=== PATIENT | female | born 1950 | race African-American/Black ===

== ENCOUNTER 2019-10-31 02:55 | Inpatient (IN) | payer OTHER ==
[~2019-10-31] VITALS: Ht 167.6 cm; Wt 104.9 kg
[2019-10-31] MEDS ORDERED: MORPHINE SULFATE 4 MG/ML CPJ (NOT FOR IM USE) IV STA ×3 (03:38→08:28)
[2019-10-31] MEDS ORDERED: ONDANSETRON HCL 4MG/2ML INJ IV STA ×2 (03:38→08:28)
[2019-10-31] MEDS ORDERED: NITROGLYCERIN OINT 1GM/INCH UDPKT TD ONE (03:45)
[2019-10-31 04:21] LABS: BASOPHILS % 1.2 % (0.0-2.0); EOSINOPHILS % 6.7 % (0.0-5.0); HEMATOCRIT. 27.5 % (36.0-48.0); HEMOGLOBIN. 8.9 g/dL (12.0-16.0); LYMPHOCYTES % 27.6 % (20.0-50.0); MEAN CORPUSCULAR HEMOGLOBIN 26.9 pg (28.0-32.0); MEAN CORPUSCULAR VOLUME 82.8 fL (81.0-99.0); MEAN PLATELET VOLUME 7.7 fl (7.4-10.4); MONOCYTES % 6.9 % (2.0-8.0); NEUTROPHILS % 57.6 % (40.0-76.0); PLATELET 349 x1000/uL (130-400); RED BLOOD CELL COUNT 3.32 mill/uL (4.2-5.4); RED CELL DISTRIBUTION WIDTH 23.8 % (11.6-14.6)
[2019-10-31 04:29] LABS: CHLORIDE 102 mEq/L (98-107)
[2019-10-31 05:07] LABS: PLATELET ESTIMATE NORMAL
[2019-10-31] MEDS ORDERED: IOHEXOL-350 100 ML BOTTLE ONE (06:43)
[2019-10-31] MEDS ORDERED: ENOXAPARIN 80MG/0.8ML SYR SUBCUT SCH (10:15)
[2019-10-31] MEDS ORDERED: ASPIRIN 325MG TABLET PO SCH (10:15)
[2019-10-31] MEDS ORDERED: ACETAMINOPHEN 325MG TABLET PO PRN (10:45)
[2019-10-31] MEDS ORDERED: ONDANSETRON HCL 4MG/2ML INJ IV PRN ×2 (10:45)
[2019-10-31] MEDS ORDERED: DEXTROSE 50% WATER 50ML SYRINGE IV PRN (10:45)
[2019-10-31] MEDS: AMLODIPINE 10MG TABLET PO SCH (11:30)
[2019-10-31] MEDS: MORPHINE SULFATE 2 MG/ML CPJ (NOT FOR IM USE) IV PRN ×2 (11:31→18:36)
[2019-10-31] MEDS: BLOOD SUGAR DIAGNOSTIC STRIP TEST SCH ×3 (13:14→21:00)
[2019-10-31] MEDS: INSULIN LISPRO 100 UNITS/ML SUBCUT SCH ×3 (13:40→21:00)
[2019-10-31] MEDS ORDERED: LORAZEPAM 2MG/ML CPJ IV PRN (20:00)
[2019-10-31 21:00] VITALS: BP 140/82
[2019-10-31 22:00] VITALS: BP 118/68
[2019-10-31] MEDS: METOPROLOL TARTRATE 50MG TABLET PO SCH (22:16)
[2019-10-31] MEDS: NITROGLYCERIN OINT 1GM/INCH UDPKT TD SCH (23:44)
[2019-11-01] VITALS (14 sets, daily range): BP systolic 111–155; BP diastolic 49–89
[2019-11-01] MEDS ORDERED: BISO5TAB13 PO (00:56)
[2019-11-01] MEDS ORDERED: HUM100IN SQ (00:56)
[2019-11-01] MEDS ORDERED: FURO20TA4 PO (00:56)
[2019-11-01] MEDS ORDERED: ASPI-1497 PO (00:56)
[2019-11-01] MEDS ORDERED: QUET400T11 PO (00:56)
[2019-11-01] MEDS ORDERED: OMEP40CA12 PO (00:56)
[2019-11-01] MEDS ORDERED: LOSA50TA41 PO (00:56)
[2019-11-01] MEDS ORDERED: FERR-71 MT (00:56)
[2019-11-01] MEDS ORDERED: ASCO100T12 MT (00:56)
[2019-11-01] MEDS ORDERED: ATOR-2 PO (00:56)
[2019-11-01] MEDS: BLOOD SUGAR DIAGNOSTIC STRIP TEST SCH ×4 (06:17→20:52)
[2019-11-01] MEDS: MORPHINE SULFATE 2 MG/ML CPJ (NOT FOR IM USE) IV PRN ×3 (06:18→21:52)
[2019-11-01] MEDS: NITROGLYCERIN OINT 1GM/INCH UDPKT TD SCH ×3 (06:18→21:51)
[2019-11-01 07:12] LABS: CLARITY URINE CLEAR (CLEAR); COLOR URINE YELLOW (YELLOW); KETONES URINE NEGATIVE (NEGATIVE); LEUKOCYTE ESTERASE URINE NEGATIVE (NEGATIVE); NITRITE URINE NEGATIVE (NEGATIVE); OCCULT BLOOD URINE 1+ (NEGATIVE); PROTEIN URINE 4+ (NEGATIVE); SPECIFIC GRAVITY URINE 1.039 (1.005-1.030); UROBILINOGEN URINE 0.2 E.U./dL (0.2-1.0)
[2019-11-01] MEDS: INSULIN LISPRO 100 UNITS/ML SUBCUT SCH ×4 (07:20→20:53)
[2019-11-01] MEDS ORDERED: FUROSEMIDE 40MG/4ML VIAL IVP NR (08:30)
[2019-11-01] MEDS ORDERED: ENOXAPARIN 40MG/0.4ML SYR SUBCUT SCH (09:00)
[2019-11-01] MEDS ORDERED: ENOXAPARIN 120MG/0.8ML SYR SUBCUT SCH (09:00)
[2019-11-01] MEDS: METOPROLOL TARTRATE 50MG TABLET PO SCH ×2 (09:45→20:52)
[2019-11-01] MEDS: ASPIRIN 81MG TABLET PO SCH (09:45)
[2019-11-01] MEDS: HYDROCODONE/ACETAMINOPHEN 10/325MG TABLET PO PRN (09:46)
[2019-11-01] MEDS: AMLODIPINE 10MG TABLET PO SCH (09:47)
[2019-11-01 10:07] LABS: PROTHROMBIN TIME 10.4 sec (9.6-11.0)
[2019-11-01] MEDS ORDERED: LIDOCAINE HCL 1% 20ML VIAL (Pyxis) INJ ONE (11:34)
[2019-11-01] MEDS ORDERED: FENTANYL CITRATE/PF 50MCG/ML 2ML VIAL ONE (11:34)
[2019-11-01] MEDS ORDERED: MIDAZOLAM HCL 2 MG/2 ML VIAL ONE (11:34)
[2019-11-01] MEDS ORDERED: IODIXANOL 320MG/ML 100 ML BOTTLE IV ONE (11:35)
[2019-11-01] MEDS ORDERED: ACETAMINOPHEN 325MG TABLET PO PRN (12:30)
[2019-11-01] MEDS ORDERED: ATROPINE SULFATE 1MG/10ML SYR IV PRN (12:30)
[2019-11-01] MEDS: CLOPIDOGREL 75MG TABLET PO SCH (15:29)
[2019-11-01] MEDS ORDERED: ATORVASTATIN CALCIUM 40MG TABLET PO SCH (21:00)
[2019-11-02] VITALS (17 sets, daily range): BP systolic 105–155; BP diastolic 57–92
[2019-11-02] MEDS: HYDROCODONE/ACETAMINOPHEN 10/325MG TABLET PO PRN ×2 (00:51→10:41)
[2019-11-02 05:29] LABS: EOSINOPHILS % 7.8 % (0.0-5.0); HEMATOCRIT. 24.9 % (36.0-48.0); HEMOGLOBIN. 7.9 g/dL (12.0-16.0); LYMPHOCYTES % 25.9 % (20.0-50.0); MEAN CORPUSCULAR HEMOGLOBIN 26.8 pg (28.0-32.0); MEAN CORPUSCULAR VOLUME 83.9 fL (81.0-99.0); MEAN PLATELET VOLUME 7.8 fl (7.4-10.4); MONOCYTES % 8.6 % (2.0-8.0); NEUTROPHILS % 56.7 % (40.0-76.0); PLATELET 305 x1000/uL (130-400); RED BLOOD CELL COUNT 2.96 mill/uL (4.2-5.4); RED CELL DISTRIBUTION WIDTH 23.5 % (11.6-14.6)
[2019-11-02] MEDS: NITROGLYCERIN OINT 1GM/INCH UDPKT TD SCH (06:07)
[2019-11-02] MEDS: BLOOD SUGAR DIAGNOSTIC STRIP TEST SCH ×3 (07:00→16:50)
[2019-11-02] MEDS: INSULIN LISPRO 100 UNITS/ML SUBCUT SCH ×3 (08:21→17:36)
[2019-11-02] MEDS: METOPROLOL TARTRATE 50MG TABLET PO SCH (08:22)
[2019-11-02] MEDS: AMLODIPINE 10MG TABLET PO SCH (08:22)
[2019-11-02] MEDS: CLOPIDOGREL 75MG TABLET PO SCH (08:22)
[2019-11-02] MEDS: ASPIRIN 81MG TABLET PO SCH (08:22)
[2019-11-02] MEDS: MORPHINE SULFATE 2 MG/ML CPJ (NOT FOR IM USE) IV PRN (12:53)
[2019-11-02] MEDS ORDERED: NITROGLYCERIN OINT 1GM/INCH UDPKT TD SCH (14:00)
== END 2019-11-02 20:58 | disposition short-term general hospital (02) | DRG 280 ==
LOC: ER 02:55 → 3WST 11:10 → ENRESERV 15:46 → CANRESERV 15:46 → EDBEDREQSVC 16:11 → ENRESERV 16:59 → 3WST 20:16
PROVIDERS: ADMIT Internal Medicine; ATTEND Internal Medicine
PROC: 4A023N7 Measurement of Cardiac Sampling and Pressure, Left Heart, Percutaneous Approach (ICD-10-PCS; principal; 2019-11-02)
PROC: B2110ZZ Fluoroscopy of Multiple Coronary Arteries using High Osmolar Contrast (ICD-10-PCS; 2019-11-02)
PROC: B2181ZZ Fluoroscopy of Left Internal Mammary Bypass Graft using Low Osmolar Contrast (ICD-10-PCS; 2019-11-02)
PROC: B21F1ZZ Fluoroscopy of Other Bypass Graft using Low Osmolar Contrast (ICD-10-PCS; 2019-11-02)
DX: I21.4 Non-ST elevation (NSTEMI) myocardial infarction (principal); E43 Unspecified severe protein-calorie malnutrition; I25.10 Atherosclerotic heart disease of native coronary artery without angina pectoris; E11.9 Type 2 diabetes mellitus without complications; I50.9 Heart failure, unspecified; I11.0 Hypertensive heart disease with heart failure; E78.1 Pure hyperglyceridemia; D64.9 Anemia, unspecified; E78.5 Hyperlipidemia, unspecified; I27.20 Pulmonary hypertension, unspecified; I87.8 Other specified disorders of veins; Z95.1 Presence of aortocoronary bypass graft; Z79.4 Long term (current) use of insulin; I25.2 Old myocardial infarction; Z95.5 Presence of coronary angioplasty implant and graft; Z68.37 Body mass index [BMI] 37.0-37.9, adult; Z79.899 Other long term (current) drug therapy
CPT/HCPCS: 36415; 71045; 71275; 80048; 80053; 80061; 81003; 82962; 83880; 84443; 84484; 85025; 85379; 93005; 93306; 93459; 99285; C1760; C1769; C1887; C1893; J1644; J1650; J1815; J1940; J2060; J2250; J2270; J2405; J3010; J3490; Q9967

== ENCOUNTER 2022-04-10 16:02 | Emergency (ER) | payer OTHER ==
[~2022-04-10] VITALS: Ht 167.6 cm; Wt 91.0 kg
[~2022-04-10 16:02] MED LIST: ASCO100T12 MT; ASPI-1497 PO; ATOR-2 PO; BISO5TAB13 PO; FERR-71 MT; FURO20TA4 PO; HUM100IN SQ; LOSA50TA41 PO; OMEP40CA20 PO; QUET400T12 PO
[2022-04-10] MEDS ORDERED: MORPHINE SULFATE 4 MG/ML CPJ (NOT FOR IM USE) IV NR (17:15)
[2022-04-10] MEDS ORDERED: HYDROCODONE/ACETAMINOPHEN 5/325MG TABLET PO ONE (17:45)
[2022-04-10] MEDS ORDERED: HYDROCODONE/ACETAMINOPHEN 5/325MG TABLET PO NR (20:52)
[2022-04-10 21:04] LABS: BASOPHILS % 1.1 % (0.0-2.0); EOSINOPHILS % 3.8 % (0.0-5.0); HEMOGLOBIN. 7.5 g/dL (12.0-16.0); LYMPHOCYTES % 29.9 % (20.0-50.0); MEAN CORPUSCULAR HEMOGLOBIN 30.5 pg (28.0-32.0); MEAN CORPUSCULAR VOLUME 93.6 fL (81.0-99.0); MONOCYTES % 9.3 % (2.0-8.0); NEUTROPHILS % 55.9 % (40.0-76.0); PLATELET 281 x1000/uL (130-400); RED BLOOD CELL COUNT 2.46 mill/uL (4.2-5.4); RED CELL DISTRIBUTION WIDTH 15.4 % (11.6-14.6)
[2022-04-10 21:12] LABS: CHLORIDE 105 mEq/L (98-107)
[2022-04-10 21:20] LABS: ETHANOL BLOOD < 10 mg/dL
[2022-04-10] MEDS ORDERED: FUROSEMIDE 40MG/4ML VIAL IVP NR (21:30)
[2022-04-10 22:30] VITALS: BP 145/83
== END 2022-04-11 02:26 | disposition short-term general hospital (02) ==
LOC: ER 16:02
DX: I11.0 Hypertensive heart disease with heart failure (principal); I50.9 Heart failure, unspecified; J96.02 Acute respiratory failure with hypercapnia; R07.89 Other chest pain; J44.9 Chronic obstructive pulmonary disease, unspecified; D64.9 Anemia, unspecified; I25.2 Old myocardial infarction; E11.9 Type 2 diabetes mellitus without complications; Z20.822 Contact with and (suspected) exposure to COVID-19
CPT/HCPCS: 36415; 71045; 80053; 80320; 83690; 83880; 84484; 85025; 85610; 87426; 93005; 99285; C9803; Z7610; J1940; G0480

== ENCOUNTER 2022-11-23 13:50 | Emergency (ER) | payer OTHER ==
[~2022-11-23] VITALS: Ht 172.7 cm; Wt 113.0 kg
[2022-11-23 14:00] VITALS: O2SAT 99
[2022-11-23 15:06] LABS: BASOPHILS % 1.1 % (0.0-2.0); EOSINOPHILS % 5.1 % (0.0-5.0); HEMATOCRIT. 24.3 % (36.0-48.0); LYMPHOCYTES % 24.2 % (20.0-50.0); MEAN CORPUSCULAR HEMOGLOBIN 30.2 pg (28.0-32.0); MEAN CORPUSCULAR HGB CONC 32.8 g/dL (31.0-37.0); MEAN CORPUSCULAR VOLUME 92.1 fL (81.0-99.0); MEAN PLATELET VOLUME 8.4 fl (7.4-10.4); MONOCYTES % 9.1 % (2.0-8.0); NEUTROPHILS % 60.5 % (40.0-76.0); PLATELET 343 x1000/uL (130-400); RED BLOOD CELL COUNT 2.64 mill/uL (4.2-5.4); RED CELL DISTRIBUTION WIDTH 14.8 % (11.6-14.6); WHITE BLOOD COUNT 6.1 x1000/uL (4.5-11.0)
[2022-11-23 15:08] LABS: CHLORIDE 102 mEq/L (98-107); INDEX HEMOLYSI 1 (1-3); INDEX ICTERIC 1 (1-4); INDEX LIPEMIC 1 (1-3); POTASSIUM 4.5 mEq/L (3.5-5.1); SODIUM 134 mEq/L (136-145)
[2022-11-23 15:19] LABS: ALANINE AMINOTRANSFERASE 23 IU/L (13-61); ALBUMIN 3.4 g/dL (3.4-5.0); ASPARTATE AMINOTRANSFERASE 17 IU/L (15-37); BILIRUBIN TOTAL 0.5 mg/dL (0.1-1.0); CARBON DIOXIDE 27 mEq/L (21-32); CREATININE 2.2 mg/dL (0.6-1.3); GLUCOSE 182 mg/dL (70-105); NT PRO B-TYPE NATRIURETIC PEP 2901 pg/mL (5-125); PROTEIN TOTAL 7.4 g/dL (6.0-8.3); TROPONIN I HIGH SENSITIVITY 17 ng/L (<54); UREA NITROGEN BLOOD 24 mg/dL (7-21)
[2022-11-23] MEDS ORDERED: ASPIRIN 325MG EC TABLET PO NR (15:45)
[2022-11-23 18:23] VITALS: BP 159/79; PULSE 77; RESP 16; TEMP 98.1
== END 2022-11-23 18:37 | disposition short-term general hospital (02) ==
LOC: ER 13:59
DX: I24.9 Acute ischemic heart disease, unspecified (principal); I25.10 Atherosclerotic heart disease of native coronary artery without angina pectoris; E11.9 Type 2 diabetes mellitus without complications; I10 Essential (primary) hypertension; Z79.899 Other long term (current) drug therapy; Z20.822 Contact with and (suspected) exposure to COVID-19
CPT/HCPCS: 80053; 83880; 85025; 84484; 36415; 71045; 93005; 99285; 87426; C9803; Z7610 ×3

== ENCOUNTER 2023-12-14 12:14 | Emergency (ER) | payer OTHER ==
[~2023-12-14] VITALS: Ht 180.3 cm; Wt 130.0 kg
[2023-12-14 12:17] VITALS: TEMP 98.7; O2SAT 99
[2023-12-14] MEDS: ASPIRIN 81MG TABLET PO ONE (13:05)
[2023-12-14 13:23] LABS: BASOPHILS % 0.9 % (0.0-2.0); EOSINOPHILS % 3.5 % (0.0-5.0); HEMATOCRIT. 33.2 % (36.0-48.0); HEMOGLOBIN. 10.3 g/dL (12.0-16.0); LYMPHOCYTES % 14.4 % (20.0-50.0); MEAN CORPUSCULAR HEMOGLOBIN 29.4 pg (28.0-32.0); MEAN CORPUSCULAR VOLUME 94.7 fL (81.0-99.0); MEAN PLATELET VOLUME 9.2 fl (7.4-10.4); MONOCYTES % 6.1 % (2.0-8.0); NEUTROPHILS % 75.1 % (40.0-76.0); PLATELET 207 x1000/uL (130-400); RED BLOOD CELL COUNT 3.51 mill/uL (4.2-5.4); WHITE BLOOD COUNT 6.1 x1000/uL (4.5-11.0)
[2023-12-14 13:27] LABS: CHLORIDE 106 mEq/L (98-107); POTASSIUM 5.1 mEq/L (3.5-5.1); SODIUM 137 mEq/L (136-145)
[2023-12-14 13:28] LABS: CALCIUM 8.8 mg/dL (8.7-10.4); CARBON DIOXIDE 25 mEq/L (21-32)
[2023-12-14 13:33] LABS: CREATININE 2.5 mg/dL (0.6-1.0); GLUCOSE 299 mg/dL (70-105); UREA NITROGEN BLOOD 27 mg/dL (9-23)
[2023-12-14 13:34] LABS: TROPONIN I HIGH SENSITIVITY 12 ng/L (3.0-34)
[2023-12-14] MEDS ORDERED: FUROSEMIDE 40MG/4ML VIAL IVP NR (15:00)
[2023-12-14 16:13] LABS: IRON 63 ug/dL (50-170)
[2023-12-14 16:14] LABS: TRIGLYCERIDE 109 mg/dL (0-150)
[2023-12-14 16:15] LABS: LDL CHOLESTEROL 50 mg/dL (5-100)
[2023-12-14 16:16] LABS: CHOLESTEROL 104 mg/dL (<200); HDL CHOLESTEROL 34 mg/dL (>65); TOTAL IRON BINDING CAPACITY 242 ug/dl (250-425)
[2023-12-14 16:18] LABS: T4 FREE 1.27 ng/dL (0.89-1.76)
[2023-12-14 16:19] LABS: THYROID STIMULATING HORMONE 2.48 uIU/mL (0.55-4.78)
[2023-12-14] MEDS ORDERED: GUAIFENESIN 200MG/10ML SUGAR FREE UDC PO PRN (16:45)
[2023-12-14] MEDS ORDERED: CLONIDINE 0.1MG TABLET PO PRN (16:45)
[2023-12-14] MEDS ORDERED: MAGNESIUM/ALUMINUM HYDROXIDE/SIMETHICONE 30ML UDC PO PRN (16:45)
[2023-12-14] MEDS ORDERED: AMLODIPINE 5MG TABLET PO SCH (16:45)
[2023-12-14] MEDS ORDERED: NITROGLYCERIN 0.4MG TABLET SL SL PRN (16:45)
[2023-12-14] MEDS ORDERED: DOCUSATE SODIUM 100MG CAPSULE PO PRN (16:45)
[2023-12-14] MEDS ORDERED: ONDANSETRON HCL 4MG/2ML INJ IV PRN (16:45)
[2023-12-14] MEDS ORDERED: ACETAMINOPHEN 325MG TABLET PO PRN ×2 (16:45)
[2023-12-14] MEDS ORDERED: IPRATROPIUM/ALBUTEROL 0.5-3(2.5)MG/3ML NEB NEB PRN (16:45)
[2023-12-14 17:30] VITALS: BP 179/85; PULSE 80; RESP 22; O2SAT 95
[2023-12-14] MEDS ORDERED: ZOLPIDEM TARTRATE 5MG TABLET PO PRN (20:00)
[2023-12-14] MEDS ORDERED: FUROSEMIDE 40MG/4ML VIAL IVP SCH (21:00)
[2023-12-14] MEDS ORDERED: FAMOTIDINE 20MG TABLET PO SCH (21:00)
[2023-12-15] MEDS ORDERED: AMLODIPINE 10MG TABLET PO SCH (09:00)
[2023-12-15] MEDS ORDERED: ASPIRIN 325MG EC TABLET PO SCH (09:00)
[2023-12-15] MEDS ORDERED: ENOXAPARIN 30MG/0.3ML SYR SUBCUT SCH (09:00)
[2023-12-15 17:10] LABS: FOLIC ACID (FOLATE) SERUM > 20.00 ng/mL (>5.38); VITAMIN B12 SERUM 1037 pg/mL (211-911)
== END 2023-12-14 17:51 | disposition short-term general hospital (02) ==
LOC: ER 12:14 → CANBEDREQ 17:07 → ER 17:51
DX: R07.89 Other chest pain (principal); I11.0 Hypertensive heart disease with heart failure; I50.9 Heart failure, unspecified; E11.9 Type 2 diabetes mellitus without complications; I25.10 Atherosclerotic heart disease of native coronary artery without angina pectoris; Z88.8 Allergy status to other drugs, medicaments and biological substances; Z79.899 Other long term (current) drug therapy; Z79.82 Long term (current) use of aspirin; Z91.041 Radiographic dye allergy status
CPT/HCPCS: 80061; 80048; 82607; 82746; 83036; 83880; 84439; 83540; 83550; 84443; 85025; 84484; 36415; 84145; 71045; 93005; 99285; Z7610 ×4; 80305

== ENCOUNTER 2023-12-18 23:17 | Emergency (ER) | payer OTHER ==
[~2023-12-18] VITALS: Ht 175.3 cm; Wt 150.0 kg
[2023-12-18 23:28] VITALS: O2SAT 100
[2023-12-19 00:35] LABS: BASOPHILS % 0.9 % (0.0-2.0); EOSINOPHILS % 4.1 % (0.0-5.0); HEMATOCRIT. 29.7 % (36.0-48.0); HEMOGLOBIN. 9.6 g/dL (12.0-16.0); LYMPHOCYTES % 22.2 % (20.0-50.0); MEAN CORPUSCULAR HEMOGLOBIN 30.1 pg (28.0-32.0); MEAN CORPUSCULAR HGB CONC 32.5 g/dL (31.0-37.0); MEAN CORPUSCULAR VOLUME 92.6 fL (81.0-99.0); MEAN PLATELET VOLUME 9.2 fl (7.4-10.4); MONOCYTES % 9.6 % (2.0-8.0); NEUTROPHILS % 63.2 % (40.0-76.0); PLATELET 204 x1000/uL (130-400); RED BLOOD CELL COUNT 3.21 mill/uL (4.2-5.4); RED CELL DISTRIBUTION WIDTH 16.5 % (11.6-14.6); WHITE BLOOD COUNT 4.5 x1000/uL (4.5-11.0)
[2023-12-19] MEDS: FUROSEMIDE 40MG/4ML VIAL IVP ONE (00:35)
[2023-12-19 00:43] LABS: CHLORIDE 104 mEq/L (98-107); POTASSIUM 4.4 mEq/L (3.5-5.1); SODIUM 137 mEq/L (136-145)
[2023-12-19 00:44] LABS: CARBON DIOXIDE 28 mEq/L (21-32)
[2023-12-19 00:45] LABS: CALCIUM 9.3 mg/dL (8.7-10.4)
[2023-12-19 00:49] LABS: CREATININE 2.5 mg/dL (0.6-1.0); GLUCOSE 180 mg/dL (70-105); UREA NITROGEN BLOOD 29 mg/dL (9-23)
[2023-12-19 00:50] LABS: TROPONIN I HIGH SENSITIVITY 18 ng/L (3.0-34)
[2023-12-19] MEDS: FUROSEMIDE 40MG TABLET PO ONE (01:30)
[2023-12-19] MEDS: LABETALOL HCL 100MG TABLET PO ONE (02:45)
[2023-12-19 03:20] VITALS: BP 172/88; PULSE 76; RESP 22; TEMP 37.00296; O2SAT 100
== END 2023-12-19 03:31 | disposition short-term general hospital (02) ==
LOC: ER 23:17
DX: I11.0 Hypertensive heart disease with heart failure (principal); I50.9 Heart failure, unspecified; J96.91 Respiratory failure, unspecified with hypoxia; I25.10 Atherosclerotic heart disease of native coronary artery without angina pectoris; E11.9 Type 2 diabetes mellitus without complications; Z88.8 Allergy status to other drugs, medicaments and biological substances; Z91.041 Radiographic dye allergy status; Z95.1 Presence of aortocoronary bypass graft
CPT/HCPCS: 36415; 71045; 80048; 83880; 84484; 85025; 93005; 99285

== ENCOUNTER 2023-12-21 14:59 | Emergency (ER) | payer OTHER ==
[~2023-12-21] VITALS: Ht 165.1 cm; Wt 150.0 kg
[2023-12-21 15:01] VITALS: O2SAT 97
[2023-12-21 15:44] LABS: BASOPHILS % 0.8 % (0.0-2.0); EOSINOPHILS % 4.2 % (0.0-5.0); HEMATOCRIT. 29.6 % (36.0-48.0); HEMOGLOBIN. 9.4 g/dL (12.0-16.0); LYMPHOCYTES % 20.8 % (20.0-50.0); MEAN CORPUSCULAR HEMOGLOBIN 29.9 pg (28.0-32.0); MEAN CORPUSCULAR HGB CONC 31.7 g/dL (31.0-37.0); MEAN CORPUSCULAR VOLUME 94.1 fL (81.0-99.0); MONOCYTES % 8.1 % (2.0-8.0); NEUTROPHILS % 66.1 % (40.0-76.0); PLATELET 183 x1000/uL (130-400); RED BLOOD CELL COUNT 3.14 mill/uL (4.2-5.4); RED CELL DISTRIBUTION WIDTH 16.8 % (11.6-14.6); WHITE BLOOD COUNT 4.4 x1000/uL (4.5-11.0)
[2023-12-21 15:50] LABS: POTASSIUM 5.3 mEq/L (3.5-5.1)
[2023-12-21 15:51] LABS: CALCIUM 8.9 mg/dL (8.7-10.4)
[2023-12-21 15:55] LABS: CREATININE 2.7 mg/dL (0.6-1.0)
[2023-12-21 15:57] LABS: PROTHROMBIN TIME 10.9 sec (9.6-11.0)
[2023-12-21] MEDS: NITROGLYCERIN 0.4MG TABLET SL SL ONE (16:19)
[2023-12-21] MEDS: FUROSEMIDE 40MG/4ML VIAL IVP ONE (17:08)
[2023-12-21 18:56] VITALS: TEMP 37.00296
[2023-12-21] MEDS: LABETALOL 5MG/ML 4ML INJ IV ONE (19:25)
[2023-12-21 19:47] VITALS: BP 163/75; PULSE 77; RESP 18; O2SAT 99
== END 2023-12-21 19:45 | disposition short-term general hospital (02) ==
LOC: ER 14:59
DX: I50.9 Heart failure, unspecified (principal); I11.0 Hypertensive heart disease with heart failure; I25.2 Old myocardial infarction; E11.9 Type 2 diabetes mellitus without complications; Z88.8 Allergy status to other drugs, medicaments and biological substances; Z79.899 Other long term (current) drug therapy; Z98.890 Other specified postprocedural states
CPT/HCPCS: 99285; 96374; 71045; 96375; 80048; 83880; 85025; 85610; 85730; 84484; 36415; 93005; J1940; J3490

== ENCOUNTER 2023-12-26 14:40 | Emergency (ER) | payer OTHER ==
[~2023-12-26] VITALS: Ht 175.3 cm; Wt 150.0 kg
[2023-12-26 14:41] VITALS: O2SAT 98
[2023-12-26 15:40] LABS: BASOPHILS % 0.7 % (0.0-2.0); EOSINOPHILS % 4.9 % (0.0-5.0); HEMATOCRIT. 29.1 % (36.0-48.0); HEMOGLOBIN. 9.4 g/dL (12.0-16.0); LYMPHOCYTES % 18.2 % (20.0-50.0); MEAN CORPUSCULAR HEMOGLOBIN 29.9 pg (28.0-32.0); MEAN CORPUSCULAR HGB CONC 32.2 g/dL (31.0-37.0); MEAN PLATELET VOLUME 8.9 fl (7.4-10.4); MONOCYTES % 6.8 % (2.0-8.0); NEUTROPHILS % 69.4 % (40.0-76.0); PLATELET 199 x1000/uL (130-400); RED BLOOD CELL COUNT 3.13 mill/uL (4.2-5.4); RED CELL DISTRIBUTION WIDTH 16.6 % (11.6-14.6)
[2023-12-26 15:48] LABS: CHLORIDE 102 mEq/L (98-107); POTASSIUM 4.9 mEq/L (3.5-5.1); SODIUM 135 mEq/L (136-145)
[2023-12-26 15:49] LABS: CARBON DIOXIDE 30 mEq/L (21-32)
[2023-12-26 15:54] LABS: CREATININE 2.6 mg/dL (0.6-1.0); GLUCOSE 321 mg/dL (70-105); UREA NITROGEN BLOOD 32 mg/dL (9-23)
[2023-12-26 15:56] LABS: TROPONIN I HIGH SENSITIVITY 15 ng/L (3.0-34)
[2023-12-26] MEDS: ASPIRIN 325MG EC TABLET PO ONE (17:10)
[2023-12-26 18:58] VITALS: BP 187/96; PULSE 82; RESP 10; TEMP 37.00296; O2SAT 98
== END 2023-12-26 19:50 | disposition short-term general hospital (02) ==
LOC: ER 14:40 → CANBEDREQ 19:45 → ER 19:50
DX: R07.89 Other chest pain (principal); I11.0 Hypertensive heart disease with heart failure; I50.9 Heart failure, unspecified; Z95.1 Presence of aortocoronary bypass graft; Z95.0 Presence of cardiac pacemaker; Z91.041 Radiographic dye allergy status; Z99.81 Dependence on supplemental oxygen; Z88.8 Allergy status to other drugs, medicaments and biological substances; Z79.899 Other long term (current) drug therapy; Z20.822 Contact with and (suspected) exposure to COVID-19
CPT/HCPCS: 36415; 71045; 80048; 83880; 84484; 85025; 87426; 93005; 99285

== ENCOUNTER 2023-12-31 16:43 | Emergency (ER) | payer OTHER ==
[~2023-12-31] VITALS: Ht 165.1 cm; Wt 125.0 kg
[2023-12-31 16:46] VITALS: O2SAT 95
[2023-12-31] MEDS ORDERED: IPRATROPIUM/ALBUTEROL 0.5-3(2.5)MG/3ML NEB HHN ONE (17:00)
[2023-12-31] MEDS: METHYLPREDNISOLONE SOD SUCC 125MG/2ML (ACT-O-VIAL) IV ONE (17:19)
[2023-12-31] MEDS: FUROSEMIDE 40MG/4ML VIAL IVP ONE (17:19)
[2023-12-31 17:28] LABS: BASOPHILS % 0.9 % (0.0-2.0); EOSINOPHILS % 3.8 % (0.0-5.0); HEMATOCRIT. 29.4 % (36.0-48.0); HEMOGLOBIN. 9.4 g/dL (12.0-16.0); LYMPHOCYTES % 20.1 % (20.0-50.0); MEAN CORPUSCULAR HEMOGLOBIN 30.5 pg (28.0-32.0); MEAN CORPUSCULAR HGB CONC 32.1 g/dL (31.0-37.0); MEAN PLATELET VOLUME 8.6 fl (7.4-10.4); MONOCYTES % 6.7 % (2.0-8.0); NEUTROPHILS % 68.5 % (40.0-76.0); PLATELET 218 x1000/uL (130-400); RED BLOOD CELL COUNT 3.09 mill/uL (4.2-5.4); RED CELL DISTRIBUTION WIDTH 16.4 % (11.6-14.6); WHITE BLOOD COUNT 5.5 x1000/uL (4.5-11.0)
[2023-12-31 17:34] LABS: CHLORIDE 103 mEq/L (98-107); POTASSIUM 4.7 mEq/L (3.5-5.1); SODIUM 135 mEq/L (136-145)
[2023-12-31 17:35] LABS: CARBON DIOXIDE 28 mEq/L (21-32)
[2023-12-31 17:38] LABS: PARTIAL THROMBOPLASTIN TIME 27.3 sec (23.4-31.0); PROTHROMBIN TIME 10.9 sec (9.6-11.0)
[2023-12-31 17:40] LABS: CREATININE 3.3 mg/dL (0.6-1.0); GLUCOSE 310 mg/dL (70-105)
[2023-12-31 17:41] LABS: TROPONIN I HIGH SENSITIVITY 18 ng/L (3.0-34); UREA NITROGEN BLOOD 33 mg/dL (9-23)
[2023-12-31] MEDS ORDERED: AZITHROMYCIN 500MG/250ML 250 ML IV SCH (18:00)
[2023-12-31] MEDS: CEFTRIAXONE 1GM/50ML 50 ML IV ONE (18:06)
[2023-12-31 18:34] LABS: BG BASE EXCESS 2.2 mmol/L (-2.0-3.0); BG DEOXYHEMOGLOBIN 3.9 % (0.0-5.0); BG FRACTION INSPIRED OXYGEN 28; BG HCO3 ACT 29.2 mmol/L (21.0-28.0); BG METHEMOGLOBIN 0.3 % (0.5-1.5); BG OXYGEN SATURATION 96.1 % (94.0-98.0); BG OXYHEMOGLOBIN 95.8 % (94.0-98.0); BG PCO2 57.7 mmHg (32.0-45.0); BG PH 7.322 (7.350-7.450); BG PO2 87.4 mmHg (83.0-108.0); BG SAMPLE SITE RIGHT RADIAL; BG TOTAL HEMOGLOBIN 10.5 g/dL (12.0-16.0); BG VENT MODE NASAL CANNULA
[2023-12-31 19:07] VITALS: TEMP 36.94740
[2023-12-31] MEDS: AZITHROMYCIN 500 MG TABLET PO NR (19:07)
[2023-12-31 20:05] LABS: TROPONIN I HIGH SENSITIVITY 19 ng/L (3.0-34)
[2023-12-31 20:53] VITALS: BP 175/97; PULSE 77; RESP 16; O2SAT 96
== END 2023-12-31 21:30 | disposition short-term general hospital (02) ==
LOC: ER 16:43 → EDBEDREQ 16:57 → CANBEDREQ 18:11 → ER 21:30
DX: J96.01 Acute respiratory failure with hypoxia (principal); E11.9 Type 2 diabetes mellitus without complications; I11.0 Hypertensive heart disease with heart failure; I50.9 Heart failure, unspecified; Z88.8 Allergy status to other drugs, medicaments and biological substances; Z88.5 Allergy status to narcotic agent; Z79.82 Long term (current) use of aspirin; Z98.890 Other specified postprocedural states; Z79.899 Other long term (current) drug therapy; Z20.822 Contact with and (suspected) exposure to COVID-19
CPT/HCPCS: 80048; 83880; 83605; 85025; 85610; 85730; 87040; 84484; 36415; 71045; 82805; 82375; 93005; 96365; 96375; 99291; 87426; 36600; J0696; J1940; J2919; Z7610 ×3

== ENCOUNTER 2024-01-31 00:01 | Inpatient (IN) | payer OTHER ==
[~2024-01-31] VITALS: Ht 177.8 cm; Wt 136.0 kg
[2024-01-31 01:39] LABS: BASOPHILS % 0.5 % (0.0-2.0); CARBON DIOXIDE 30 mEq/L (21-32); CHLORIDE 102 mEq/L (98-107); EOSINOPHILS % 2.4 % (0.0-5.0); HEMATOCRIT. 21.4 % (36.0-48.0); LYMPHOCYTES % 10.5 % (20.0-50.0); MEAN CORPUSCULAR HEMOGLOBIN 31.8 pg (28.0-32.0); MEAN CORPUSCULAR HGB CONC 32.6 g/dL (31.0-37.0); MEAN CORPUSCULAR VOLUME 97.6 fL (81.0-99.0); MEAN PLATELET VOLUME 8.6 fl (7.4-10.4); MONOCYTES % 8.3 % (2.0-8.0); NEUTROPHILS % 78.3 % (40.0-76.0); PLATELET 248 x1000/uL (130-400); POTASSIUM 4.9 mEq/L (3.5-5.1); RED BLOOD CELL COUNT 2.19 mill/uL (4.2-5.4); RED CELL DISTRIBUTION WIDTH 16.9 % (11.6-14.6); SODIUM 135 mEq/L (136-145); WHITE BLOOD COUNT 6.3 x1000/uL (4.5-11.0)
[2024-01-31 01:40] LABS: CALCIUM 8.8 mg/dL (8.7-10.4)
[2024-01-31 01:44] LABS: CREATININE 2.7 mg/dL (0.6-1.0); GLUCOSE 301 mg/dL (70-105)
[2024-01-31 01:45] LABS: UREA NITROGEN BLOOD 51 mg/dL (9-23)
[2024-01-31 01:46] LABS: TROPONIN I HIGH SENSITIVITY 11 ng/L (3.0-34)
[2024-01-31 01:49] LABS: PARTIAL THROMBOPLASTIN TIME 27.9 sec (23.4-31.0); PROTHROMBIN TIME 10.9 sec (9.6-11.0)
[2024-01-31 02:03] LABS: ETHANOL BLOOD < 10 mg/dL (<10)
[2024-01-31] MEDS: ACETAMINOPHEN 1000MG/100ML 100 ML IV NR (02:55)
[2024-01-31 03:52] LABS: TROPONIN I HIGH SENSITIVITY 12 ng/L (3.0-34)
[2024-01-31] MEDS ORDERED: MORPHINE SULFATE 2 MG/ML INJ (NOT FOR IM USE) IV PRN (06:30)
[2024-01-31] MEDS: NITROGLYCERIN 0.4MG TABLET SL SL PRN (07:54)
[2024-01-31] MEDS: ASPIRIN 81MG TABLET PO SCH (09:20)
[2024-01-31] MEDS: AMLODIPINE 5MG TABLET PO SCH (11:15)
[2024-01-31] MEDS ORDERED: ACETAMINOPHEN 325MG TABLET PO PRN ×2 (13:30)
[2024-01-31] MEDS ORDERED: DOCUSATE SODIUM 100MG CAPSULE PO PRN (13:30)
[2024-01-31] MEDS ORDERED: ONDANSETRON HCL 4MG/2ML INJ IV PRN (13:30)
[2024-01-31] MEDS ORDERED: DEXTROSE 50% WATER 50ML SYRINGE IV PRN (13:30)
[2024-01-31] MEDS ORDERED: CLONIDINE 0.1MG TABLET PO PRN (13:30)
[2024-01-31] MEDS: BLOOD SUGAR DIAGNOSTIC STRIP TEST SCH (16:45)
[2024-01-31] MEDS: INSULIN LISPRO 100 UNITS/ML SUBCUT SCH (17:15)
[2024-01-31 20:00] VITALS: BP 169/68; PULSE 75; RESP 22; TEMP 37.00296; O2SAT 98
[2024-01-31 20:30] VITALS: PULSE 75; RESP 22; O2SAT 99
[2024-01-31] MEDS: IPRATROPIUM/ALBUTEROL 0.5-3(2.5)MG/3ML NEB HHN PRN (20:31)
[2024-01-31] MEDS: ATORVASTATIN CALCIUM 20MG TABLET PO SCH (21:43)
[2024-01-31] MEDS: METOPROLOL TARTRATE 25MG TABLET PO SCH (21:51)
[2024-01-31] MEDS: HYDROCODONE/ACETAMINOPHEN 5/325MG TABLET PO PRN (22:41)
[2024-01-31] MEDS: GABAPENTIN 100MG CAPSULE PO SCH (22:41)
[2024-02-01] VITALS: BP 155/57; PULSE 76; RESP 22; TEMP 37.05852; O2SAT 98
[2024-02-01 03:45] VITALS: BP 158/68; PULSE 74; RESP 22; TEMP 37.16964; O2SAT 96
== END 2024-02-01 03:45 | disposition short-term general hospital (02) | DRG 812 ==
LOC: ER 00:06 → 5WST 04:20 → EDBEDREQTM 04:28 → EDBEDREQ 04:28
PROVIDERS: ADMIT Internal Medicine; ATTEND Internal Medicine
PROC: 30233N1 Transfusion of Nonautologous Red Blood Cells into Peripheral Vein, Percutaneous Approach (ICD-10-PCS; principal; 2024-01-31)
DX: D64.9 Anemia, unspecified (principal); I13.0 Hypertensive heart and chronic kidney disease with heart failure and stage 1 through stage 4 chronic kidney disease, or unspecified chronic kidney disease; Z68.41 Body mass index [BMI] 40.0-44.9, adult; R07.89 Other chest pain; I50.9 Heart failure, unspecified; I25.10 Atherosclerotic heart disease of native coronary artery without angina pectoris; E11.22 Type 2 diabetes mellitus with diabetic chronic kidney disease; E66.9 Obesity, unspecified; E78.5 Hyperlipidemia, unspecified; N18.9 Chronic kidney disease, unspecified; I25.2 Old myocardial infarction; Z79.84 Long term (current) use of oral hypoglycemic drugs; Z88.5 Allergy status to narcotic agent; Z95.1 Presence of aortocoronary bypass graft; Z95.5 Presence of coronary angioplasty implant and graft
CPT/HCPCS: 36415; 71045; 80048; 80320; 82962; 83880; 84484; 85025; 86850; 86900; 86920; 93005; 94640; 99285; J1815; P9016; G0480; J0131

== ENCOUNTER 2024-02-17 02:45 | Emergency (ER) | payer OTHER ==
[~2024-02-17] VITALS: Ht 172.7 cm; Wt 125.0 kg
[2024-02-17 02:52] VITALS: O2SAT 99
[2024-02-17] MEDS: FUROSEMIDE 40MG/4ML VIAL IV ONE (04:34)
[2024-02-17 04:43] LABS: BG BASE EXCESS 2.2 mmol/L (-2.0-3.0); BG CARBOXYHEMOGLOBIN 0.7 % (0.5-1.5); BG DEOXYHEMOGLOBIN 3.3 % (0.0-5.0); BG FRACTION INSPIRED OXYGEN 21; BG HCO3 ACT 28.2 mmol/L (21.0-28.0); BG METHEMOGLOBIN 0.3 % (0.5-1.5); BG OXYGEN SATURATION 96.7 % (94.0-98.0); BG OXYHEMOGLOBIN 95.7 % (94.0-98.0); BG PCO2 51.7 mmHg (32.0-45.0); BG PH 7.355 (7.350-7.450); BG PO2 86.9 mmHg (83.0-108.0); BG SAMPLE SITE RIGHT RADIAL; BG TOTAL HEMOGLOBIN 9.2 g/dL (12.0-16.0); BG VENT MODE ROOM AIR
[2024-02-17 05:00] LABS: BASOPHILS % 0.5 % (0.0-2.0); EOSINOPHILS % 2.3 % (0.0-5.0); HEMATOCRIT. 29.9 % (36.0-48.0); HEMOGLOBIN. 9.4 g/dL (12.0-16.0); LYMPHOCYTES % 10.6 % (20.0-50.0); MEAN CORPUSCULAR HEMOGLOBIN 30.2 pg (28.0-32.0); MEAN CORPUSCULAR HGB CONC 31.6 g/dL (31.0-37.0); MEAN CORPUSCULAR VOLUME 95.6 fL (81.0-99.0); MEAN PLATELET VOLUME 7.9 fl (7.4-10.4); MONOCYTES % 6.8 % (2.0-8.0); NEUTROPHILS % 79.8 % (40.0-76.0); PLATELET 269 x1000/uL (130-400); RED BLOOD CELL COUNT 3.13 mill/uL (4.2-5.4); RED CELL DISTRIBUTION WIDTH 16.5 % (11.6-14.6); WHITE BLOOD COUNT 6.7 x1000/uL (4.5-11.0)
[2024-02-17 05:03] LABS: CHLORIDE 104 mEq/L (98-107); POTASSIUM 4.6 mEq/L (3.5-5.1); SODIUM 138 mEq/L (136-145)
[2024-02-17 05:04] LABS: CALCIUM 8.8 mg/dL (8.7-10.4); CARBON DIOXIDE 28 mEq/L (21-32)
[2024-02-17 05:09] LABS: CREATININE 2.7 mg/dL (0.6-1.0); GLUCOSE 284 mg/dL (70-105); UREA NITROGEN BLOOD 32 mg/dL (9-23)
[2024-02-17 05:10] LABS: TROPONIN I HIGH SENSITIVITY 15 ng/L (3.0-34)
[2024-02-17 10:26] VITALS: BP 127/64; PULSE 67; RESP 19; TEMP 37.00296; O2SAT 100
== END 2024-02-17 11:14 | disposition short-term general hospital (02) ==
LOC: ER 02:45
DX: I50.9 Heart failure, unspecified (principal); N18.32 Chronic kidney disease, stage 3b; I13.0 Hypertensive heart and chronic kidney disease with heart failure and stage 1 through stage 4 chronic kidney disease, or unspecified chronic kidney disease; I25.10 Atherosclerotic heart disease of native coronary artery without angina pectoris; E11.22 Type 2 diabetes mellitus with diabetic chronic kidney disease; I25.2 Old myocardial infarction; Z88.5 Allergy status to narcotic agent; Z88.8 Allergy status to other drugs, medicaments and biological substances; Z91.041 Radiographic dye allergy status; Z95.0 Presence of cardiac pacemaker; Z95.1 Presence of aortocoronary bypass graft; Z79.899 Other long term (current) drug therapy
CPT/HCPCS: 99285; 96374; 71045; 80048; 83880; 83605; 85025; 84484; 36415; 82805; 82375; 93005; 36600; J1940

== ENCOUNTER 2024-02-29 18:19 | Inpatient (IN) | payer OTHER ==
[~2024-02-29] VITALS: Ht 170.2 cm; Wt 134.3 kg
[2024-02-29 22:01] LABS: BASOPHILS % 0.4 % (0.0-2.0); EOSINOPHILS % 2.6 % (0.0-5.0); HEMATOCRIT. 29.2 % (36.0-48.0); HEMOGLOBIN. 9.3 g/dL (12.0-16.0); LYMPHOCYTES % 13.8 % (20.0-50.0); MEAN CORPUSCULAR HEMOGLOBIN 30.1 pg (28.0-32.0); MEAN CORPUSCULAR VOLUME 94.1 fL (81.0-99.0); MEAN PLATELET VOLUME 7.7 fl (7.4-10.4); MONOCYTES % 6.3 % (2.0-8.0); NEUTROPHILS % 76.9 % (40.0-76.0); PLATELET 253 x1000/uL (130-400); RED CELL DISTRIBUTION WIDTH 15.7 % (11.6-14.6)
[2024-02-29 22:07] LABS: CHLORIDE 104 mEq/L (98-107); POTASSIUM 4.9 mEq/L (3.5-5.1); SODIUM 138 mEq/L (136-145)
[2024-02-29 22:08] LABS: CALCIUM 8.8 mg/dL (8.7-10.4); CARBON DIOXIDE 24 mEq/L (21-32)
[2024-02-29 22:13] LABS: CREATININE 2.8 mg/dL (0.6-1.0); GLUCOSE 242 mg/dL (70-105); UREA NITROGEN BLOOD 37 mg/dL (9-23)
[2024-02-29 22:14] LABS: TROPONIN I HIGH SENSITIVITY 16 ng/L (3.0-34)
[2024-02-29] MEDS: HYDROCODONE/ACETAMINOPHEN 10/325MG TABLET PO ONE (23:49)
[2024-03-01] MEDS ORDERED: CLONIDINE 0.3MG TABLET PO ONE (05:15)
[2024-03-01] MEDS: CLONIDINE 0.1MG TABLET PO NR (05:16)
[2024-03-01] MEDS ORDERED: KETOROLAC 30MG/ML VIAL IM ONE (05:30)
[2024-03-01] MEDS ORDERED: ONDANSETRON HCL 4MG/2ML INJ IV PRN (09:45)
[2024-03-01] MEDS ORDERED: DOCUSATE SODIUM 100MG CAPSULE PO PRN (09:45)
[2024-03-01] MEDS ORDERED: IPRATROPIUM/ALBUTEROL 0.5-3(2.5)MG/3ML NEB HHN PRN (09:45)
[2024-03-01] MEDS ORDERED: ACETAMINOPHEN 325MG TABLET PO PRN (09:45)
[2024-03-01] MEDS ORDERED: GUAIFENESIN 200MG/10ML SUGAR FREE UDC PO PRN (09:45)
[2024-03-01 10:18] VITALS: BP 100/75; PULSE 89; RESP 22; TEMP 36.61404
[2024-03-01 10:20] VITALS: BP 100/75; PULSE 89; RESP 22; TEMP 36.6404
[2024-03-01] MEDS ORDERED: APIX5TAB PO (10:54)
[2024-03-01] MEDS ORDERED: AMLO5TAB88 PO (10:54)
[2024-03-01] MEDS ORDERED: HYDR25TA78 PO (11:01)
[2024-03-01] MEDS ORDERED: ISOS60TA76 PO (11:01)
[2024-03-01 12:00] VITALS: BP 131/63; PULSE 82; RESP 20; TEMP 37.05852; O2SAT 93
[2024-03-01] MEDS: ACETAMINOPHEN 325MG TABLET PO PRN (15:12)
[2024-03-01 16:00] VITALS: BP 132/68; PULSE 83; RESP 20; TEMP 36.6696; O2SAT 93
[2024-03-01] MEDS ORDERED: DEXTROSE 50% WATER 50ML SYRINGE IV PRN (16:45)
[2024-03-01] MEDS ORDERED: TRAMADOL 50MG TABLET PO PRN (16:45)
[2024-03-01] MEDS ORDERED: NALOXONE HCL 0.4MG/ML VIAL IV PRN (16:45)
[2024-03-01] MEDS: BLOOD SUGAR DIAGNOSTIC STRIP TEST SCH (16:50)
[2024-03-01] MEDS: HYDRALAZINE HCL 25MG TABLET PO SCH (16:50)
[2024-03-01] MEDS: LOSARTAN 50 MG TABLET PO SCH (16:50)
[2024-03-01] MEDS: INSULIN LISPRO 100 UNITS/ML SUBCUT SCH (17:34)
[2024-03-01] MEDS: FUROSEMIDE 20MG TABLET PO SCH (17:34)
[2024-03-01 17:51] LABS: TROPONIN I HIGH SENSITIVITY 15 ng/L (3.0-34)
[2024-03-01] MEDS ORDERED: IPRATROPIUM/ALBUTEROL 0.5-3(2.5)MG/3ML NEB HHN SCH (18:00)
[2024-03-01 19:13] VITALS: BP 132/68; PULSE 83; TEMP 98; O2SAT 93
[2024-03-01 20:00] VITALS: BP 140/59; PULSE 76; RESP 18; TEMP 36.6696; TEMP 36.66960; O2SAT 94
[2024-03-02] MEDS ORDERED: ISOSORBIDE MONONITRATE 60MG TABLET SR 24HR PO SCH (09:00)
[2024-03-02] MEDS ORDERED: AMLODIPINE 5MG TABLET PO SCH (13:00)
== END 2024-03-01 20:19 | disposition short-term general hospital (02) | DRG 291 ==
LOC: ER 18:19 → 8WST 23:59
PROVIDERS: ADMIT Hospitalist; ATTEND Hospitalist
DX: I11.0 Hypertensive heart disease with heart failure (principal); J96.21 Acute and chronic respiratory failure with hypoxia; E11.9 Type 2 diabetes mellitus without complications; E78.00 Pure hypercholesterolemia, unspecified; I50.9 Heart failure, unspecified; I25.119 Atherosclerotic heart disease of native coronary artery with unspecified angina pectoris; J44.9 Chronic obstructive pulmonary disease, unspecified; Z88.5 Allergy status to narcotic agent; Z95.1 Presence of aortocoronary bypass graft; Z99.81 Dependence on supplemental oxygen; Z91.041 Radiographic dye allergy status; I25.2 Old myocardial infarction
CPT/HCPCS: 36415; 71045; 80048; 83036; 83880; 84484; 85025; 93005; 99285; A4606; A4663; J1815

== ENCOUNTER 2024-03-06 02:07 | Emergency (ER) | payer OTHER ==
[~2024-03-06] VITALS: Ht 175.3 cm; Wt 136.0 kg
[~2024-03-06 02:07] MED LIST changes: +AMLO5TAB88 PO; +APIX5TAB PO; +HYDR25TA78 PO; +ISOS60TA76 PO
[2024-03-06 02:15] VITALS: O2SAT 97
[2024-03-06 03:04] LABS: BASOPHILS % 0.2 % (0.0-2.0); EOSINOPHILS % 2.1 % (0.0-5.0); HEMATOCRIT. 32.1 % (36.0-48.0); HEMOGLOBIN. 10.3 g/dL (12.0-16.0); LYMPHOCYTES % 11.6 % (20.0-50.0); MEAN CORPUSCULAR HEMOGLOBIN 30.6 pg (28.0-32.0); MEAN CORPUSCULAR HGB CONC 32.1 g/dL (31.0-37.0); MEAN CORPUSCULAR VOLUME 95.2 fL (81.0-99.0); MONOCYTES % 6.2 % (2.0-8.0); NEUTROPHILS % 79.9 % (40.0-76.0); PLATELET 272 x1000/uL (130-400); RED BLOOD CELL COUNT 3.38 mill/uL (4.2-5.4); RED CELL DISTRIBUTION WIDTH 15.9 % (11.6-14.6); WHITE BLOOD COUNT 7.8 x1000/uL (4.5-11.0)
[2024-03-06 03:17] LABS: CHLORIDE 99 mEq/L (98-107); SODIUM 131 mEq/L (136-145)
[2024-03-06 03:18] LABS: CALCIUM 9.2 mg/dL (8.7-10.4); CARBON DIOXIDE 28 mEq/L (21-32)
[2024-03-06 03:21] LABS: PARTIAL THROMBOPLASTIN TIME 30.3 sec (23.4-31.0)
[2024-03-06 03:23] LABS: CREATININE 2.8 mg/dL (0.6-1.0); GLUCOSE 326 mg/dL (70-105); UREA NITROGEN BLOOD 39 mg/dL (9-23)
[2024-03-06 03:25] LABS: TROPONIN I HIGH SENSITIVITY 14 ng/L (3.0-34)
[2024-03-06 04:34] LABS: ETHANOL BLOOD < 10 mg/dL (<10)
[2024-03-06] MEDS ORDERED: FUROSEMIDE 40MG/4ML VIAL IVP ONE (05:15)
[2024-03-06 06:14] VITALS: O2SAT 100
[2024-03-06 09:15] VITALS: BP 135/66; PULSE 66; RESP 16; TEMP 98.6
== END 2024-03-06 09:40 | disposition short-term general hospital (02) ==
LOC: ER 02:07 → EDBEDREQTM 07:49 → EDBEDREQ 07:49 → ER 09:40
DX: R06.02 Shortness of breath (principal); I25.10 Atherosclerotic heart disease of native coronary artery without angina pectoris; I11.0 Hypertensive heart disease with heart failure; I25.2 Old myocardial infarction; E11.65 Type 2 diabetes mellitus with hyperglycemia; I50.9 Heart failure, unspecified; Z79.899 Other long term (current) drug therapy; Z88.5 Allergy status to narcotic agent; Z88.8 Allergy status to other drugs, medicaments and biological substances; Z91.041 Radiographic dye allergy status; Z95.0 Presence of cardiac pacemaker; Z95.1 Presence of aortocoronary bypass graft; Z20.822 Contact with and (suspected) exposure to COVID-19
CPT/HCPCS: 80048; 80320; 83880; 85025; 85610; 85730; 84484; 36415; 71045; 93005; 99285; 87426; A4663; Z7610 ×2; A4606; G0480

== ENCOUNTER 2024-03-22 23:18 | Inpatient (IN) | payer OTHER ==
[~2024-03-22] VITALS: Ht 167.6 cm; Wt 132.4 kg
[2024-03-23 01:20] LABS: CARBON DIOXIDE 34 mEq/L (21-32); CHLORIDE 97 mEq/L (98-107); POTASSIUM 5.1 mEq/L (3.5-5.1); SODIUM 136 mEq/L (136-145)
[2024-03-23 01:21] LABS: CALCIUM 9.7 mg/dL (8.7-10.4)
[2024-03-23 01:24] LABS: BASOPHILS % 0.7 % (0.0-2.0); EOSINOPHILS % 3.7 % (0.0-5.0); HEMATOCRIT. 31.7 % (36.0-48.0); HEMOGLOBIN. 10.2 g/dL (12.0-16.0); LYMPHOCYTES % 21.5 % (20.0-50.0); MEAN CORPUSCULAR HEMOGLOBIN 31.3 pg (28.0-32.0); MEAN CORPUSCULAR HGB CONC 32.3 g/dL (31.0-37.0); MEAN CORPUSCULAR VOLUME 96.9 fL (81.0-99.0); MEAN PLATELET VOLUME 8.8 fl (7.4-10.4); MONOCYTES % 7.6 % (2.0-8.0); NEUTROPHILS % 66.5 % (40.0-76.0); PLATELET 261 x1000/uL (130-400); RED BLOOD CELL COUNT 3.27 mill/uL (4.2-5.4); RED CELL DISTRIBUTION WIDTH 17.2 % (11.6-14.6); WHITE BLOOD COUNT 7.1 x1000/uL (4.5-11.0)
[2024-03-23 01:25] LABS: TROPONIN I HIGH SENSITIVITY 24 ng/L (3.0-34)
[2024-03-23 01:26] LABS: GLUCOSE 214 mg/dL (70-105); UREA NITROGEN BLOOD 51 mg/dL (9-23)
[2024-03-23 01:29] LABS: CREATININE 3.7 mg/dL (0.6-1.0)
[2024-03-23 01:30] LABS: ETHANOL BLOOD < 10 mg/dL (<10)
[2024-03-23 02:00] LABS: PARTIAL THROMBOPLASTIN TIME 29.1 sec (23.4-31.0); PROTHROMBIN TIME 11.5 sec (9.6-11.0)
[2024-03-23] MEDS: ACETAMINOPHEN 1000MG/100ML 100 ML IV ONE (03:29)
[2024-03-23] MEDS: FUROSEMIDE 40MG/4ML VIAL IVP ONE (04:15)
[2024-03-23] MEDS ORDERED: MAGNESIUM/ALUMINUM HYDROXIDE/SIMETHICONE 30ML UDC PO PRN (05:30)
[2024-03-23] MEDS ORDERED: DOCUSATE SODIUM 100MG CAPSULE PO PRN (05:30)
[2024-03-23] MEDS ORDERED: GUAIFENESIN 200MG/10ML SUGAR FREE UDC PO PRN (05:30)
[2024-03-23] MEDS ORDERED: IPRATROPIUM/ALBUTEROL 0.5-3(2.5)MG/3ML NEB HHN PRN (05:30)
[2024-03-23] MEDS ORDERED: ACETAMINOPHEN 325MG TABLET PO PRN (05:30)
[2024-03-23] MEDS ORDERED: ONDANSETRON HCL 4MG/2ML INJ IV PRN (05:30)
[2024-03-23] MEDS: FUROSEMIDE 40MG/4ML VIAL IVP NR (05:42)
[2024-03-23 06:36] LABS: TROPONIN I HIGH SENSITIVITY 27 ng/L (3.0-34)
[2024-03-23] MEDS ORDERED: MEDICATION NOT ON FORMULARY EA (Omeprazole 40 MG) PO SCH (09:00)
[2024-03-23] MEDS: AMLODIPINE 5MG TABLET PO SCH (09:59)
[2024-03-23] MEDS: FERROUS SULFATE 325MG TABLET PO SCH (10:00)
[2024-03-23] MEDS: PANTOPRAZOLE 40MG DR TABLET PO SCH (10:01)
[2024-03-23] MEDS: ISOSORBIDE MONONITRATE 60MG TABLET SR 24HR PO SCH (10:01)
[2024-03-23] MEDS: HYDRALAZINE HCL 25MG TABLET PO SCH (10:01)
[2024-03-23] MEDS: ASPIRIN 81MG EC TABLET PO SCH (10:01)
[2024-03-23] MEDS: APIXABAN 5 MG TABLET PO SCH (10:01)
[2024-03-23] MEDS: SODIUM ZIRCONIUM CYCLOSILICATE 10GM/PACKET PO NR (10:02)
[2024-03-23 17:57] VITALS: BP 151/74; PULSE 69; RESP 18; TEMP 36.5; O2SAT 100
[2024-03-23 18:01] VITALS: BP 151/74; PULSE 69; RESP 18; TEMP 36.5
[2024-03-23] MEDS: QUETIAPINE FUMARATE 200MG TABLET PO SCH (21:00)
[2024-03-23] MEDS: ATORVASTATIN CALCIUM 40MG TABLET PO SCH (21:00)
[2024-03-23] MEDS: NITROGLYCERIN OINT 1GM/INCH UDPKT TD SCH (22:00)
[2024-03-23] MEDS: GABAPENTIN 100MG CAPSULE PO NR (23:23)
[2024-03-24] VITALS (12 sets, daily range): BP systolic 123–179; BP diastolic 60–83; PULSE 73–82; RESP 20–25; TEMP 36.3–36.7; O2SAT 90–100
[2024-03-24] MEDS ORDERED: FURO-151 PO (00:20)
[2024-03-24] MEDS ORDERED: DOCU-422 PO (00:20)
[2024-03-24] MEDS ORDERED: BISO5TAB13 PO (00:20)
[2024-03-24] MEDS ORDERED: LATA2.5D14 EACHEYE (00:20)
[2024-03-24] MEDS ORDERED: ISOS120T13 PO (00:20)
[2024-03-24] MEDS ORDERED: MAGN400C PO (00:20)
[2024-03-24] MEDS ORDERED: HYDR50TA40 PO (00:20)
[2024-03-24] MEDS ORDERED: GABA-529 PO (00:20)
[2024-03-24] MEDS ORDERED: ATOR-2 PO (00:20)
[2024-03-24] MEDS ORDERED: OMEP-265 PO (00:20)
[2024-03-24] MEDS ORDERED: APIX5TAB PO (00:23)
[2024-03-24] MEDS ORDERED: DEXTROSE 50% WATER 50ML SYRINGE IV PRN (00:30)
[2024-03-24] MEDS: IPRATROPIUM/ALBUTEROL 0.5-3(2.5)MG/3ML NEB HHN SCH (00:39)
[2024-03-24] MEDS: ACETAMINOPHEN 325MG TABLET PO PRN (01:37)
[2024-03-24] MEDS: LIDOCAINE 5% PATCH TOP SCH (01:45)
[2024-03-24] MEDS: CLONIDINE 0.1MG TABLET PO PRN (06:48)
[2024-03-24] MEDS: BLOOD SUGAR DIAGNOSTIC STRIP TEST SCH (06:48)
[2024-03-24] MEDS: INSULIN LISPRO 100 UNITS/ML SUBCUT SCH (06:58)
[2024-03-24 09:37] LABS: BG BASE EXCESS 6.3 mmol/L (-2.0-3.0); BG CARBOXYHEMOGLOBIN 0.7 % (0.5-1.5); BG FRACTION INSPIRED OXYGEN 36; BG HCO3 ACT 32.5 mmol/L (21.0-28.0); BG METHEMOGLOBIN 0.3 % (0.5-1.5); BG OXYGEN SATURATION 92.9 % (94.0-98.0); BG PCO2 56.1 mmHg (32.0-45.0); BG PH 7.381 (7.350-7.450); BG PO2 67.4 mmHg (83.0-108.0); BG SAMPLE SITE RIGHT RADIAL; BG TOTAL HEMOGLOBIN 9.9 g/dL (12.0-16.0); BG VENT MODE NASAL CANNULA
[2024-03-24 13:50] LABS: POTASSIUM 5.4 mEq/L (3.5-5.1)
[2024-03-24 13:52] LABS: CALCIUM 9.1 mg/dL (8.7-10.4)
[2024-03-24 13:56] LABS: CREATININE 3.5 mg/dL (0.6-1.0)
[2024-03-24] MEDS: NITROGLYCERIN OINT 1GM/INCH UDPKT TD SCH (18:35)
[2024-03-24] MEDS ORDERED: AMLODIPINE 5MG TABLET PO SCH (21:00)
== END 2024-03-24 21:45 | disposition short-term general hospital (02) | DRG 189 ==
LOC: ER 23:20 → 8WST 03-23 02:04 → EDBEDREQ 03-23 02:15 → EDBEDREQTM 03-23 02:15
PROVIDERS: ADMIT Internal Medicine; ATTEND Internal Medicine
PROC: 5A09357 Assistance with Respiratory Ventilation, Less than 24 Consecutive Hours, Continuous Positive Airway Pressure (ICD-10-PCS; principal; 2024-03-24)
DX: J96.00 Acute respiratory failure, unspecified whether with hypoxia or hypercapnia (principal); J44.1 Chronic obstructive pulmonary disease with (acute) exacerbation; N17.9 Acute kidney failure, unspecified; I25.110 Atherosclerotic heart disease of native coronary artery with unstable angina pectoris; I13.0 Hypertensive heart and chronic kidney disease with heart failure and stage 1 through stage 4 chronic kidney disease, or unspecified chronic kidney disease; Z68.42 Body mass index [BMI] 45.0-49.9, adult; E78.5 Hyperlipidemia, unspecified; E11.22 Type 2 diabetes mellitus with diabetic chronic kidney disease; N18.9 Chronic kidney disease, unspecified; I50.9 Heart failure, unspecified; D64.9 Anemia, unspecified; Z79.4 Long term (current) use of insulin; Z79.899 Other long term (current) drug therapy; Z79.01 Long term (current) use of anticoagulants; Z88.5 Allergy status to narcotic agent; Z99.81 Dependence on supplemental oxygen; Z95.1 Presence of aortocoronary bypass graft; Z87.891 Personal history of nicotine dependence; I25.2 Old myocardial infarction; E66.9 Obesity, unspecified; Z74.01 Bed confinement status
CPT/HCPCS: 36415; 36600; 71045; 80048; 80320; 82375; 82805; 82962; 83880; 84484; 85025; 93005; 94070; 94640; 94660; 94664; 98960; 99285; J1815; J1940; G0480; J0131

== ENCOUNTER 2024-04-21 01:48 | Emergency (ER) | payer OTHER ==
[~2024-04-21] VITALS: Ht 170.2 cm; Wt 113.0 kg
[~2024-04-21 01:48] MED LIST changes: -ASCO100T12 MT; -BISO5TAB13 PO; -HUM100IN SQ
[2024-04-21 01:49] VITALS: BP 217/109; PULSE 91; TEMP 36.8; O2SAT 100
[2024-04-21 02:36] LABS: BASOPHILS % 0.3 % (0.0-2.0); EOSINOPHILS % 3.9 % (0.0-5.0); HEMATOCRIT. 32.8 % (36.0-48.0); HEMOGLOBIN. 10.3 g/dL (12.0-16.0); LYMPHOCYTES % 12.6 % (20.0-50.0); MEAN CORPUSCULAR HEMOGLOBIN 30.1 pg (28.0-32.0); MEAN CORPUSCULAR HGB CONC 31.5 g/dL (31.0-37.0); MEAN CORPUSCULAR VOLUME 95.4 fL (81.0-99.0); MEAN PLATELET VOLUME 8.4 fl (7.4-10.4); MONOCYTES % 5.6 % (2.0-8.0); NEUTROPHILS % 77.6 % (40.0-76.0); PLATELET 225 x1000/uL (130-400); RED BLOOD CELL COUNT 3.44 mill/uL (4.2-5.4); RED CELL DISTRIBUTION WIDTH 17.6 % (11.6-14.6)
[2024-04-21 02:39] LABS: CHLORIDE 102 mEq/L (98-107); POTASSIUM 4.6 mEq/L (3.5-5.1); SODIUM 136 mEq/L (136-145)
[2024-04-21 02:40] LABS: CALCIUM 9.1 mg/dL (8.7-10.4); CARBON DIOXIDE 26 mEq/L (21-32)
[2024-04-21 02:44] LABS: PARTIAL THROMBOPLASTIN TIME 31.6 sec (23.4-31.0); PROTHROMBIN TIME 11.2 sec (9.6-11.0)
[2024-04-21 02:45] LABS: GLUCOSE 374 mg/dL (70-105); UREA NITROGEN BLOOD 38 mg/dL (9-23)
[2024-04-21 02:46] LABS: TROPONIN I HIGH SENSITIVITY 15 ng/L (3.0-34)
[2024-04-21 03:01] VITALS: RESP 32
[2024-04-21 03:26] LABS: ETHANOL BLOOD < 10 mg/dL (<10)
[2024-04-21] MEDS: NITROGLYCERIN OINT 1GM/INCH UDPKT TD NR (03:57)
[2024-04-21] MEDS: FUROSEMIDE 40MG/4ML VIAL IVP NR (03:57)
[2024-04-21] MEDS: ACETAMINOPHEN 1000MG/100ML 100 ML IV ONE (03:57)
[2024-04-21 06:05] VITALS: RESP 32
== END 2024-04-21 08:21 | disposition short-term general hospital (02) ==
LOC: ER 01:48
DX: I11.0 Hypertensive heart disease with heart failure (principal); I50.9 Heart failure, unspecified; I25.2 Old myocardial infarction; E11.9 Type 2 diabetes mellitus without complications; Z79.899 Other long term (current) drug therapy; Z95.0 Presence of cardiac pacemaker; Z95.5 Presence of coronary angioplasty implant and graft; Z91.041 Radiographic dye allergy status; Z88.8 Allergy status to other drugs, medicaments and biological substances; Z88.5 Allergy status to narcotic agent
CPT/HCPCS: 80048; 80320; 83880; 85025; 85610; 85730; 84484; 36415; 71045; 94660; 93005; 96365; 96375; 99285; J1940; Z7610 ×3; G0480; J0131

== ENCOUNTER 2024-08-06 21:08 | Emergency (ER) | payer OTHER ==
[~2024-08-06] VITALS: Ht 162.6 cm; Wt 82.0 kg
[2024-08-06 21:10] VITALS: O2SAT 98
[2024-08-07 00:07] VITALS: BP 136/80; PULSE 102; RESP 10; TEMP 36.7; O2SAT 98
== END 2024-08-07 00:55 | disposition left against medical advice (07) ==
LOC: ER 21:08
DX: R55 Syncope and collapse (principal); I50.9 Heart failure, unspecified; J44.9 Chronic obstructive pulmonary disease, unspecified; I13.2 Hypertensive heart and chronic kidney disease with heart failure and with stage 5 chronic kidney disease, or end stage renal disease; N18.6 End stage renal disease; E11.22 Type 2 diabetes mellitus with diabetic chronic kidney disease; Z99.2 Dependence on renal dialysis; Z91.041 Radiographic dye allergy status; Z95.0 Presence of cardiac pacemaker; Z79.899 Other long term (current) drug therapy; Z86.73 Personal history of transient ischemic attack (TIA), and cerebral infarction without residual deficits; Z88.8 Allergy status to other drugs, medicaments and biological substances; Z88.5 Allergy status to narcotic agent
CPT/HCPCS: 99283; Z7610 ×3

== ENCOUNTER 2024-10-14 21:25 | Emergency (ER) | payer OTHER ==
[~2024-10-14] VITALS: Ht 170.2 cm; Wt 109.0 kg
[2024-10-14 21:38] VITALS: TEMP 36.8; O2SAT 97
[2024-10-14 22:54] LABS: BASOPHILS % 1.2 % (0.0-2.0); EOSINOPHILS % 4.2 % (0.0-5.0); HEMATOCRIT. 33.3 % (36.0-48.0); HEMOGLOBIN. 10.8 g/dL (12.0-16.0); LYMPHOCYTES % 28.4 % (20.0-50.0); MEAN PLATELET VOLUME 8.8 fl (7.4-10.4); MONOCYTES % 9.4 % (2.0-8.0); NEUTROPHILS % 56.8 % (40.0-76.0); PLATELET 187 x1000/uL (130-400); RED BLOOD CELL COUNT 3.29 mill/uL (4.2-5.4); RED CELL DISTRIBUTION WIDTH 18.2 % (11.6-14.6)
[2024-10-14 23:09] LABS: ETHANOL BLOOD < 10 mg/dL (<10); UREA NITROGEN BLOOD 38 mg/dL (9-23)
[2024-10-14 23:10] LABS: ASPARTATE AMINOTRANSFERASE 16 IU/L (<34); INR 0.9
[2024-10-14 23:11] LABS: BILIRUBIN DIRECT < 0.1 mg/dL (<=3.0); PROTEIN TOTAL 8.1 g/dL (6.0-8.3); TROPONIN I HIGH SENSITIVITY 18 ng/L (3.0-34)
[2024-10-14 23:29] LABS: BILIRUBIN TOTAL < 0.2 mg/dL (0.1-1.0)
[2024-10-14 23:32] LABS: CREATININE 7.7 mg/dL (0.6-1.0)
[2024-10-14 23:58] LABS: INFLUENZA TYPE A Presumptive Negative (Pres. Neg.)
[2024-10-14 23:59] LABS: INFLUENZA TYPE B Presumptive Negative (Pres. Neg.)
[2024-10-15] LABS: RESPIRATORY SYNCYTIAL VIRUS Not Detected (Not Detectd)
[2024-10-15] MEDS: DIPHENHYDRAMINE 25MG CAPSULE PO SCH (00:48)
[2024-10-15] MEDS: ACETAMINOPHEN 325MG TABLET PO SCH (00:48)
[2024-10-15 02:09] LABS: TROPONIN I HIGH SENSITIVITY 19 ng/L (3.0-34)
[2024-10-15 03:17] VITALS: BP 107/68; PULSE 103; RESP 16; O2SAT 100
== END 2024-10-15 03:30 | disposition short-term general hospital (02) ==
LOC: ER 21:37 → CMPBEDREQ 10-15 13:08
DX: N18.6 End stage renal disease (principal); I50.9 Heart failure, unspecified; I13.2 Hypertensive heart and chronic kidney disease with heart failure and with stage 5 chronic kidney disease, or end stage renal disease; J44.9 Chronic obstructive pulmonary disease, unspecified; Z79.899 Other long term (current) drug therapy; Z99.2 Dependence on renal dialysis; Z88.5 Allergy status to narcotic agent; Z88.8 Allergy status to other drugs, medicaments and biological substances; Z20.822 Contact with and (suspected) exposure to COVID-19
CPT/HCPCS: 80076; 80048; 80320; 83880; 85025; 85379; 85610; 85730; 87420; 84484 ×2; 87804 ×2; 36415 ×2; 71045; 93005; 99285; 87426; Z7610; Q0163; A4606; G0480

== ENCOUNTER 2024-11-01 12:41 | Emergency (ER) | payer OTHER ==
[~2024-11-01] VITALS: Ht 152.4 cm; Wt 105.0 kg
[2024-11-01 12:45] VITALS: O2SAT 100
[2024-11-01 15:42] LABS: BASOPHILS % 0.5 % (0.0-2.0); EOSINOPHILS % 4.4 % (0.0-5.0); HEMATOCRIT. 34.2 % (36.0-48.0); HEMOGLOBIN. 11.1 g/dL (12.0-16.0); LYMPHOCYTES % 18.6 % (20.0-50.0); MEAN PLATELET VOLUME 7.9 fl (7.4-10.4); MONOCYTES % 6.0 % (2.0-8.0); NEUTROPHILS % 70.5 % (40.0-76.0); PLATELET 207 x1000/uL (130-400); RED BLOOD CELL COUNT 3.30 mill/uL (4.2-5.4); RED CELL DISTRIBUTION WIDTH 21.4 % (11.6-14.6)
[2024-11-01 15:51] LABS: INR 1.0
[2024-11-01 16:10] LABS: UREA NITROGEN BLOOD 34 mg/dL (9-23)
[2024-11-01 16:11] LABS: ASPARTATE AMINOTRANSFERASE 14 IU/L (<34)
[2024-11-01 16:12] LABS: BILIRUBIN DIRECT < 0.1 mg/dL (<=3.0); BILIRUBIN TOTAL 0.2 mg/dL (0.1-1.0); PROTEIN TOTAL 7.2 g/dL (6.0-8.3)
[2024-11-01 16:16] LABS: CREATININE 8.4 mg/dL (0.6-1.0); TROPONIN I HIGH SENSITIVITY 48 ng/L (3.0-34)
[2024-11-01] MEDS: HYDROCODONE/ACETAMINOPHEN 5/325MG TABLET PO ONE (20:04)
[2024-11-01 20:55] VITALS: BP 170/86; PULSE 94; RESP 16; TEMP 36.7; O2SAT 100
== END 2024-11-01 21:07 | disposition short-term general hospital (02) ==
LOC: ER 12:41 → CMPBEDREQ 11-02 19:26
DX: R07.2 Precordial pain (principal); I13.2 Hypertensive heart and chronic kidney disease with heart failure and with stage 5 chronic kidney disease, or end stage renal disease; I25.2 Old myocardial infarction; I50.9 Heart failure, unspecified; J44.9 Chronic obstructive pulmonary disease, unspecified; N18.6 End stage renal disease; Z79.01 Long term (current) use of anticoagulants; Z79.899 Other long term (current) drug therapy; Z99.81 Dependence on supplemental oxygen; Z99.2 Dependence on renal dialysis; Z98.890 Other specified postprocedural states; Z88.6 Allergy status to analgesic agent; Z88.8 Allergy status to other drugs, medicaments and biological substances; Z88.5 Allergy status to narcotic agent
CPT/HCPCS: 80076; 80048; 83690; 85025; 85379; 85610; 85730; 84484; 36415; 71045; 93005; 99285; Z7610

== ENCOUNTER 2024-11-17 20:25 | Emergency (ER) | payer OTHER ==
[~2024-11-17] VITALS: Ht 162.6 cm; Wt 90.0 kg
[2024-11-17 20:29] VITALS: O2SAT 96
[2024-11-17 22:07] LABS: BASOPHILS % 1.1 % (0.0-2.0); EOSINOPHILS % 6.1 % (0.0-5.0); HEMATOCRIT. 34.2 % (36.0-48.0); HEMOGLOBIN. 10.9 g/dL (12.0-16.0); LYMPHOCYTES % 23.5 % (20.0-50.0); MEAN PLATELET VOLUME 8.4 fl (7.4-10.4); MONOCYTES % 10.2 % (2.0-8.0); NEUTROPHILS % 59.1 % (40.0-76.0); PLATELET 187 x1000/uL (130-400); RED BLOOD CELL COUNT 3.27 mill/uL (4.2-5.4); RED CELL DISTRIBUTION WIDTH 19.1 % (11.6-14.6)
[2024-11-17 22:19] LABS: TROPONIN I HIGH SENSITIVITY 23 ng/L (3.0-34); UREA NITROGEN BLOOD 22 mg/dL (9-23)
[2024-11-17 22:20] LABS: ASPARTATE AMINOTRANSFERASE 13 IU/L (<34)
[2024-11-17 22:21] LABS: BILIRUBIN DIRECT < 0.1 mg/dL (<=3.0); BILIRUBIN TOTAL 0.2 mg/dL (0.1-1.0); PROTEIN TOTAL 7.8 g/dL (6.0-8.3)
[2024-11-17 22:26] LABS: CREATININE 5.6 mg/dL (0.6-1.0)
[2024-11-17] MEDS: HYDROCODONE/ACETAMINOPHEN 5/325MG TABLET PO NR (22:57)
[2024-11-18] MEDS: HYDROCODONE/ACETAMINOPHEN 5/325MG TABLET PO ONE (01:38)
[2024-11-18 01:40] VITALS: BP 91/46; PULSE 92; RESP 12; TEMP 36.6; O2SAT 96
== END 2024-11-18 02:04 | disposition short-term general hospital (02) ==
LOC: ER 20:25 → CMPBEDREQ 11-18 08:52
DX: R07.89 Other chest pain (principal); R06.09 Other forms of dyspnea; E11.22 Type 2 diabetes mellitus with diabetic chronic kidney disease; E11.65 Type 2 diabetes mellitus with hyperglycemia; I13.2 Hypertensive heart and chronic kidney disease with heart failure and with stage 5 chronic kidney disease, or end stage renal disease; I25.10 Atherosclerotic heart disease of native coronary artery without angina pectoris; I50.9 Heart failure, unspecified; N18.6 End stage renal disease; Z79.899 Other long term (current) drug therapy; Z88.5 Allergy status to narcotic agent; Z88.6 Allergy status to analgesic agent; Z88.8 Allergy status to other drugs, medicaments and biological substances; Z95.5 Presence of coronary angioplasty implant and graft; Z99.2 Dependence on renal dialysis
CPT/HCPCS: 36415; 71045; 80048; 80076; 80320; 83880; 84484; 85025; 93005; 99285; A4606; G0480

== ENCOUNTER 2024-11-30 22:31 | Inpatient (IN) | payer OTHER ==
[~2024-11-30] VITALS: Ht 162.6 cm; Wt 131.7 kg
[2024-12-01] VITALS (16 sets, daily range): BP systolic 82–143; BP diastolic 47–67; PULSE 77–113; RESP 16–22; TEMP 36.2–36.50292; O2SAT 94–98
[2024-12-01 00:06] LABS: HEMATOCRIT. 32.6 % (36.0-48.0); HEMOGLOBIN. 10.4 g/dL (12.0-16.0); MEAN PLATELET VOLUME 9.4 fl (7.4-10.4); PLATELET 174 x1000/uL (130-400); RED BLOOD CELL COUNT 3.17 mill/uL (4.2-5.4); RED CELL DISTRIBUTION WIDTH 17.6 % (11.6-14.6)
[2024-12-01 00:10] LABS: UREA NITROGEN BLOOD 37 mg/dL (9-23)
[2024-12-01 00:11] LABS: TROPONIN I HIGH SENSITIVITY 24 ng/L (3.0-34)
[2024-12-01 00:12] LABS: ASPARTATE AMINOTRANSFERASE 16 IU/L (<34)
[2024-12-01 00:13] LABS: BILIRUBIN DIRECT < 0.1 mg/dL (<=3.0); BILIRUBIN TOTAL 0.2 mg/dL (0.1-1.0); PROTEIN TOTAL 8.3 g/dL (6.0-8.3)
[2024-12-01 00:14] LABS: INR 1.0
[2024-12-01 00:18] LABS: CREATININE 7.9 mg/dL (0.6-1.0)
[2024-12-01] MEDS: ALBUTEROL (0.5%) 2.5MG/0.5ML NEB HHN NR (00:46)
[2024-12-01] MEDS: SODIUM CHLORIDE 0.9% 250 ML IV ONE (00:46)
[2024-12-01] MEDS: PIPERACILLIN/TAZO 3.375G/50ML 50 ML IV NR (00:46)
[2024-12-01] MEDS: HYDROCODONE/ACETAMINOPHEN 5/325MG TABLET PO ONE (01:56)
[2024-12-01] MEDS: VANCOMYCIN 1G PREMIX 200 ML IV NR (01:58)
[2024-12-01] MEDS: INSULIN REGULAR (HUMULIN R) 1000UNITS/10ML VIAL SUBCUT NR (02:28)
[2024-12-01] MEDS ORDERED: DEXTROSE 50% WATER 50ML SYRINGE IV PRN ×2 (03:30→09:30)
[2024-12-01] MEDS ORDERED: IPRATROPIUM/ALBUTEROL 0.5-3(2.5)MG/3ML NEB HHN PRN (04:00)
[2024-12-01] MEDS ORDERED: HYDROCODONE/ACETAMINOPHEN 5/325MG TABLET PO PRN (06:00)
[2024-12-01] MEDS ORDERED: NALOXONE HCL 0.4MG/ML VIAL IV PRN (06:00)
[2024-12-01] MEDS ORDERED: BLOOD SUGAR DIAGNOSTIC STRIP TEST SCH (07:20)
[2024-12-01] MEDS ORDERED: INSULIN LISPRO 100 UNITS/ML SUBCUT SCH (07:50)
[2024-12-01] MEDS ORDERED: ASPIRIN 81MG EC TABLET PO SCH (09:00)
[2024-12-01] MEDS ORDERED: FUROSEMIDE 20MG TABLET PO SCH (09:00)
[2024-12-01] MEDS ORDERED: LOSARTAN 50 MG TABLET PO SCH (09:00)
[2024-12-01] MEDS ORDERED: AMLODIPINE 5MG TABLET PO SCH (09:00)
[2024-12-01] MEDS ORDERED: HYDRALAZINE HCL 25MG TABLET PO SCH (09:00)
[2024-12-01] MEDS: ISOSORBIDE MONONITRATE 60MG TABLET SR 24HR PO SCH (09:00)
[2024-12-01] MEDS ORDERED: DOCU-422 PO (09:40)
[2024-12-01] MEDS ORDERED: ERGO1250 PO (09:42)
[2024-12-01] MEDS ORDERED: ATOR-2 PO (09:42)
[2024-12-01] MEDS ORDERED: ISOS30TA91 PO (09:42)
[2024-12-01] MEDS ORDERED: FOLI0.8T27 PO (09:42)
[2024-12-01] MEDS ORDERED: BISO5TAB13 PO (09:42)
[2024-12-01] MEDS ORDERED: APIX5TAB PO (09:42)
[2024-12-01] MEDS ORDERED: LATA2.5D7 EACHEYE (09:42)
[2024-12-01] MEDS ORDERED: SEVELAMER CARBONATE 800 MG TABLET PO SCH (10:00)
[2024-12-01 10:01] LABS: BAND% 14.0 % (1.0-6.0); EOSINOPHILS % MANUAL 2.0 % (0.0-5.0); LYMPHOCYTES % MANUAL 5.0 % (20.0-60.0); METAMYELOCYTES % 1.0 % (0-0); MONOCYTES % MANUAL 3.0 % (2.0-8.0); NEUTROPHILS % MANUAL 75.0 % (45.0-75.0)
[2024-12-01] MEDS: INSULIN GLARGINE 100 UNITS/ML SUBCUT SCH (10:01)
[2024-12-01 10:02] LABS: PLATELET ESTIMATE NORMAL
[2024-12-01] MEDS: PANTOPRAZOLE 40MG DR TABLET PO SCH (10:02)
[2024-12-01] MEDS: APIXABAN 5 MG TABLET PO SCH ×2 (10:02→21:22)
[2024-12-01] MEDS: FERROUS SULFATE 325MG TABLET PO SCH (10:02)
[2024-12-01] MEDS: INSULIN LISPRO 100 UNITS/ML SUBCUT SCH ×2 (10:18→14:11)
[2024-12-01] MEDS: BLOOD SUGAR DIAGNOSTIC STRIP TEST SCH (12:20)
[2024-12-01] MEDS: SEVELAMER CARBONATE 800 MG TABLET PO SCH (14:10)
[2024-12-01] MEDS: VANCOMYCIN 1G PREMIX 200 ML IV SCH (18:15)
[2024-12-01] MEDS ORDERED: QUETIAPINE FUMARATE 200MG TABLET PO SCH (21:00)
[2024-12-01] MEDS ORDERED: APIXABAN 5 MG TABLET PO SCH (21:00)
[2024-12-01] MEDS: ATORVASTATIN CALCIUM 40MG TABLET PO SCH (21:22)
[2024-12-01] MEDS: BISOPROLOL FUMARATE 5 MG TABLET PO SCH (21:23)
[2024-12-01] MEDS: PIPERACILLIN/TAZO 3.375G/50ML 50 ML IV SCH (21:24)
[2024-12-02] VITALS (8 sets, daily range): BP systolic 95–127; BP diastolic 44–65; PULSE 60–88; RESP 18–21; TEMP 36.2–36.4; O2SAT 93–100
[2024-12-02] MEDS: PANTOPRAZOLE 40MG DR TABLET PO SCH (06:52)
[2024-12-02] MEDS: HYDROCODONE/ACETAMINOPHEN 5/325MG TABLET PO PRN (07:34)
[2024-12-02 08:01] LABS: HEPATITIS A AB IGM NEGATIVE (Negative)
[2024-12-02 08:02] LABS: HEPATITIS B CORE AB IGM NEGATIVE (Negative); HEPATITIS C AB NON REACTIVE (Neg) (Negative)
[2024-12-02] MEDS ORDERED: SEVE800T8 PO (08:49)
[2024-12-02] MEDS ORDERED: APIXABAN 5 MG TABLET PO SCH (09:00)
[2024-12-02] MEDS: SEVELAMER CARBONATE 800 MG TABLET PO SCH (10:39)
[2024-12-02] MEDS: HYDROCODONE/ACETAMINOPHEN 10/325MG TABLET PO PRN (12:37)
[2024-12-02] MEDS ORDERED: SEVELAMER CARBONATE 800 MG TABLET PO SCH (12:50)
[2024-12-02] MEDS ORDERED: DIPH25TA23 PO (15:05)
[2024-12-02] MEDS ORDERED: HYDROMORPHONE HCL/PF 2MG/ML INJ IV PRN (15:15)
[2024-12-03] VITALS (13 sets, daily range): BP systolic 93–135; BP diastolic 49–81; PULSE 77–83; RESP 17–21; TEMP 36.2–36.55848; O2SAT 97–98
[2024-12-03] MEDS: ACETAMINOPHEN WITH CODEINE 300/30MG TABLET PO PRN (04:39)
[2024-12-03 09:16] LABS: BASOPHILS % 0.8 % (0.0-2.0); EOSINOPHILS % 6.3 % (0.0-5.0); HEMATOCRIT. 29.0 % (36.0-48.0); HEMOGLOBIN. 9.3 g/dL (12.0-16.0); LYMPHOCYTES % 25.5 % (20.0-50.0); MEAN PLATELET VOLUME 9.1 fl (7.4-10.4); MONOCYTES % 7.6 % (2.0-8.0); NEUTROPHILS % 59.8 % (40.0-76.0); PLATELET 177 x1000/uL (130-400); RED BLOOD CELL COUNT 2.85 mill/uL (4.2-5.4); RED CELL DISTRIBUTION WIDTH 17.1 % (11.6-14.6)
[2024-12-03 09:22] LABS: UREA NITROGEN BLOOD 40 mg/dL (9-23)
[2024-12-03 09:24] LABS: PHOSPHORUS 3.0 mg/dL (2.5-4.9)
[2024-12-03 10:26] LABS: CREATININE 8.5 mg/dL (0.6-1.0)
[2024-12-03] MEDS: VANCOMYCIN 750MG PREMIX 150 ML IV SCH (16:32)
[2024-12-03] MEDS: NITROGLYCERIN 0.4MG TABLET SL SL PRN (20:35)
[2024-12-03] MEDS: SEVELAMER CARBONATE 800 MG TABLET PO SCH (20:37)
[2024-12-04] VITALS (13 sets, daily range): BP systolic 142–173; BP diastolic 60–90; PULSE 66–88; RESP 16–24; TEMP 36.4–36.8; O2SAT 97–99
[2024-12-04] MEDS: LATANOPROST 0.005% OPHTH DROPS 2.5ML EACHEYE SCH (01:16)
[2024-12-04 12:26] LABS: BASOPHILS % 0.9 % (0.0-2.0); EOSINOPHILS % 6.5 % (0.0-5.0); HEMATOCRIT. 30.8 % (36.0-48.0); HEMOGLOBIN. 10.0 g/dL (12.0-16.0); LYMPHOCYTES % 21.6 % (20.0-50.0); MEAN PLATELET VOLUME 9.1 fl (7.4-10.4); MONOCYTES % 5.9 % (2.0-8.0); NEUTROPHILS % 65.1 % (40.0-76.0); PLATELET 200 x1000/uL (130-400); RED BLOOD CELL COUNT 3.01 mill/uL (4.2-5.4); RED CELL DISTRIBUTION WIDTH 17.0 % (11.6-14.6)
[2024-12-04 12:42] LABS: UREA NITROGEN BLOOD 25.0 mg/dL (9-23)
[2024-12-04 12:57] LABS: CREATININE 5.6 mg/dL (0.6-1.0)
[2024-12-05] MEDS ORDERED: FAMOTIDINE 20MG TABLET PO SCH (09:00)
== END 2024-12-04 20:38 | disposition home or self-care (01) | DRG 637 ==
LOC: ER 22:31 → 6WST 12-01 02:07 → EDBEDREQTM 12-01 02:13 → EDBEDREQ 12-01 02:13 → EDBEDREQDT 12-01 02:13 → ENRESERV 12-01 03:53
PROVIDERS: ADMIT Student in an Organized Health Care Education/Training Program; ATTEND Student in an Organized Health Care Education/Training Program
PROC: 5A1D70Z Performance of Urinary Filtration, Intermittent, Less than 6 Hours Per Day (ICD-10-PCS; 2024-12-01)
PROC: 5A09357 Assistance with Respiratory Ventilation, Less than 24 Consecutive Hours, Continuous Positive Airway Pressure (ICD-10-PCS; principal; 2024-12-02)
PROC: 5A09357 Assistance with Respiratory Ventilation, Less than 24 Consecutive Hours, Continuous Positive Airway Pressure (ICD-10-PCS; 2024-12-03)
PROC: 5A1D70Z Performance of Urinary Filtration, Intermittent, Less than 6 Hours Per Day (ICD-10-PCS; 2024-12-03)
PROC: 5A09357 Assistance with Respiratory Ventilation, Less than 24 Consecutive Hours, Continuous Positive Airway Pressure (ICD-10-PCS; 2024-12-04)
PROC: 5A1D70Z Performance of Urinary Filtration, Intermittent, Less than 6 Hours Per Day (ICD-10-PCS; 2024-12-04)
DX: E11.65 Type 2 diabetes mellitus with hyperglycemia (principal); J96.21 Acute and chronic respiratory failure with hypoxia; N18.6 End stage renal disease; L97.929 Non-pressure chronic ulcer of unspecified part of left lower leg with unspecified severity; L97.919 Non-pressure chronic ulcer of unspecified part of right lower leg with unspecified severity; I13.2 Hypertensive heart and chronic kidney disease with heart failure and with stage 5 chronic kidney disease, or end stage renal disease; I48.0 Paroxysmal atrial fibrillation; J44.9 Chronic obstructive pulmonary disease, unspecified; I25.10 Atherosclerotic heart disease of native coronary artery without angina pectoris; D64.9 Anemia, unspecified; B34.9 Viral infection, unspecified; D72.829 Elevated white blood cell count, unspecified; S81.809A Unspecified open wound, unspecified lower leg, initial encounter; I50.9 Heart failure, unspecified; I89.0 Lymphedema, not elsewhere classified; Z79.01 Long term (current) use of anticoagulants; Z79.4 Long term (current) use of insulin; Z88.5 Allergy status to narcotic agent; Z91.119 Patient's noncompliance with dietary regimen due to unspecified reason; Z91.148 Patient's other noncompliance with medication regimen for other reason; Z95.0 Presence of cardiac pacemaker; Z95.1 Presence of aortocoronary bypass graft; Z99.2 Dependence on renal dialysis; Z79.899 Other long term (current) drug therapy; X58.XXXA Exposure to other specified factors, initial encounter; Y93.89 Activity, other specified; Y92.89 Other specified places as the place of occurrence of the external cause; Y99.8 Other external cause status
CPT/HCPCS: 36415; 71045; 80048; 80076; 80202; 80320; 82962; 83036; 83605; 83735; 83880; 84100; 84484; 85025; 86705; 86709; 87340; 90935; 93005; 93970; 94070; 94640; 94660; 94664; 96365; 96375; 98960; 99291; A4606; J1815; J2543; J3373; G0480

== ENCOUNTER 2024-12-25 05:24 | Emergency (ER) | payer OTHER ==
[~2024-12-25] VITALS: Ht 165.1 cm; Wt 127.0 kg
[~2024-12-25 05:24] MED LIST changes: -AMLO5TAB88 PO; -ASPI-1497 PO; +BISO5TAB13 PO; +DIPH25TA23 PO; +DOCU-422 PO; +ERGO1250 PO; +FOLI0.8T27 PO; -HYDR25TA78 PO; +ISOS30TA91 PO; -ISOS60TA76 PO; +LATA2.5D7 EACHEYE; -LOSA50TA41 PO; -OMEP40CA20 PO; -QUET400T12 PO; +SEVE800T8 PO
[2024-12-25 05:26] VITALS: O2SAT 99
[2024-12-25 05:59] LABS: BASOPHILS % 0.7 % (0.0-2.0); EOSINOPHILS % 9.4 % (0.0-5.0); HEMATOCRIT. 34.5 % (36.0-48.0); HEMOGLOBIN. 10.5 g/dL (12.0-16.0); LYMPHOCYTES % 24.5 % (20.0-50.0); MEAN PLATELET VOLUME 8.9 fl (7.4-10.4); MONOCYTES % 11.0 % (2.0-8.0); NEUTROPHILS % 54.4 % (40.0-76.0); PLATELET 245 x1000/uL (130-400); RED BLOOD CELL COUNT 3.25 mill/uL (4.2-5.4); RED CELL DISTRIBUTION WIDTH 18.1 % (11.6-14.6)
[2024-12-25 06:17] LABS: CREATININE 4.7 mg/dL (0.6-1.0); UREA NITROGEN BLOOD 17.0 mg/dL (9-23)
[2024-12-25 06:19] LABS: TROPONIN I HIGH SENSITIVITY 25 ng/L (3.0-34)
[2024-12-25] MEDS: ALBUTEROL (0.083%) 2.5MG/3ML NEB HHN ONE (07:30)
[2024-12-25] MEDS: HYDROCODONE/ACETAMINOPHEN 10/325MG TABLET PO ONE (08:11)
[2024-12-25] MEDS: IPRATROPIUM BROMIDE (0.02%) 0.5MG/2.5ML NEB HHN ONE (08:43)
[2024-12-25 09:44] LABS: TROPONIN I HIGH SENSITIVITY 22 ng/L (3.0-34)
[2024-12-25] MEDS ORDERED: MAGNESIUM/ALUMINUM HYDROXIDE/SIMETHICONE 30ML UDC PO PRN (09:45)
[2024-12-25] MEDS ORDERED: CLONIDINE 0.1MG TABLET PO PRN (09:45)
[2024-12-25] MEDS ORDERED: ZOLPIDEM TARTRATE 5MG TABLET PO PRN (09:45)
[2024-12-25] MEDS ORDERED: ONDANSETRON HCL 4MG/2ML INJ IV PRN (09:45)
[2024-12-25] MEDS ORDERED: ACETAMINOPHEN 325MG TABLET PO PRN (09:45)
[2024-12-25] MEDS ORDERED: HYDROCODONE/ACETAMINOPHEN 5/325MG TABLET PO PRN (09:45)
[2024-12-25] MEDS ORDERED: ENOXAPARIN 40MG/0.4ML SYR SUBCUT SCH (09:45)
[2024-12-25 11:07] VITALS: BP 116/64; PULSE 89; RESP 18; TEMP 36.8; O2SAT 100
[2024-12-25 12:57] LABS: HEPATITIS A AB IGM NEGATIVE (Negative); HEPATITIS B CORE AB IGM NEGATIVE (Negative)
[2024-12-25 12:58] LABS: HEPATITIS C AB NON REACTIVE (Neg) (Negative)
[2024-12-25] MEDS ORDERED: SEVELAMER CARBONATE 800 MG TABLET PO SCH (17:00)
[2024-12-25] MEDS ORDERED: ATORVASTATIN CALCIUM 40MG TABLET PO SCH (21:00)
[2024-12-25] MEDS ORDERED: METOPROLOL TARTRATE 25MG TABLET PO SCH (21:00)
[2024-12-25] MEDS ORDERED: LATANOPROST 0.005% OPHTH DROPS 2.5ML EACHEYE SCH (21:00)
[2024-12-25] MEDS ORDERED: APIXABAN 5 MG TABLET PO SCH (21:00)
[2024-12-26] MEDS ORDERED: PANTOPRAZOLE SODIUM 40 MG/VIAL IV SCH (09:00)
[2024-12-26] MEDS ORDERED: ISOSORBIDE MONONITRATE 30MG TABLET SR 24HR PO SCH (09:00)
== END 2024-12-25 11:45 | disposition short-term general hospital (02) ==
LOC: ER 05:24 → EDBEDREQTM 05:46 → EDBEDREQ 10:14 → EDBEDREQTM 10:14 → ER 11:45 → CMPBEDREQ 13:01
DX: I13.2 Hypertensive heart and chronic kidney disease with heart failure and with stage 5 chronic kidney disease, or end stage renal disease (principal); E11.22 Type 2 diabetes mellitus with diabetic chronic kidney disease; N18.6 End stage renal disease; J44.9 Chronic obstructive pulmonary disease, unspecified; E11.65 Type 2 diabetes mellitus with hyperglycemia; Z79.01 Long term (current) use of anticoagulants; Z88.5 Allergy status to narcotic agent; Z88.6 Allergy status to analgesic agent; Z88.8 Allergy status to other drugs, medicaments and biological substances; Z79.899 Other long term (current) drug therapy
CPT/HCPCS: 80048; 83880; 85025; 87340; 84484; 36415; 86705; 86709; 71045; 93005; 99285; Z7610

== ENCOUNTER 2024-12-31 15:57 | Inpatient (IN) | payer OTHER ==
[~2024-12-31] VITALS: Ht 165.1 cm; Wt 90.7 kg
[2024-12-31 16:07] VITALS: O2SAT 98
[2024-12-31] MEDS ORDERED: MORPHINE SULFATE 4 MG/ML INJ (FOR IV/IM USE) IV ONE (16:15)
[2024-12-31] MEDS: HYDROCODONE/ACETAMINOPHEN 10/325MG TABLET PO STA (18:43)
[2024-12-31 22:49] LABS: BASOPHILS % 0.7 % (0.0-2.0); EOSINOPHILS % 7.5 % (0.0-5.0); HEMATOCRIT. 33.7 % (36.0-48.0); HEMOGLOBIN. 10.8 g/dL (12.0-16.0); LYMPHOCYTES % 18.0 % (20.0-50.0); MEAN PLATELET VOLUME 8.5 fl (7.4-10.4); MONOCYTES % 7.7 % (2.0-8.0); NEUTROPHILS % 66.1 % (40.0-76.0); PLATELET 159 x1000/uL (130-400); RED BLOOD CELL COUNT 3.23 mill/uL (4.2-5.4); RED CELL DISTRIBUTION WIDTH 18.8 % (11.6-14.6)
[2024-12-31 23:03] LABS: CREATININE 4.0 mg/dL (0.6-1.0); UREA NITROGEN BLOOD 9.0 mg/dL (9-23)
[2024-12-31 23:05] LABS: TROPONIN I HIGH SENSITIVITY 34 ng/L (3.0-34)
[2025-01-01] MEDS: HYDROCODONE/ACETAMINOPHEN 10/325MG TABLET PO PRN (01:44)
[2025-01-01] MEDS: VANCOMYCIN 1.25GM/250ML 250 ML IV NR (07:20)
[2025-01-01 09:00] VITALS: BP 153/81; PULSE 90; RESP 20; TEMP 36.3; O2SAT 100
[2025-01-01] MEDS ORDERED: ONDANSETRON HCL 4MG/2ML INJ IV PRN (10:15)
[2025-01-01] MEDS ORDERED: DEXTROSE 50% WATER 50ML SYRINGE IV PRN (10:15)
[2025-01-01 12:00] VITALS: BP 131/74; PULSE 88; RESP 20; TEMP 36.1; O2SAT 100
[2025-01-01] MEDS: BLOOD SUGAR DIAGNOSTIC STRIP TEST SCH (12:40)
[2025-01-01] MEDS: INSULIN LISPRO 100 UNITS/ML SUBCUT SCH (13:10)
[2025-01-01 13:12] VITALS: BP 131/74; PULSE 88; RESP 20; TEMP 36.14; TEMP 36.1400
[2025-01-01] MEDS: PIPERACILLIN/TAZO 3.375G/50ML 50 ML IV SCH (13:42)
[2025-01-01] MEDS: LEVOFLOXACIN 250MG TABLET PO SCH (16:00)
[2025-01-01 18:10] VITALS: BP 131/74; PULSE 88; RESP 20; TEMP 97.6
[2025-01-01 18:17] VITALS: BP 131/67; PULSE 88; RESP 20; TEMP 97.6
[2025-01-01] MEDS ORDERED: DOXYCYCLINE HYCLATE 100MG CAPSULE PO SCH (21:00)
== END 2025-01-01 18:30 | disposition short-term general hospital (02) | DRG 555 ==
LOC: ER 15:57 → 7WST 21:00 → EDBEDREQTM 01-01 01:54 → EDBEDREQ 01-01 01:54 → EDBEDREQDT 01-01 01:54 → ENRESERV 01-01 07:44
PROVIDERS: ADMIT Internal Medicine; ATTEND Internal Medicine
DX: M79.604 Pain in right leg (principal); N18.6 End stage renal disease; I13.11 Hypertensive heart and chronic kidney disease without heart failure, with stage 5 chronic kidney disease, or end stage renal disease; I87.8 Other specified disorders of veins; E11.22 Type 2 diabetes mellitus with diabetic chronic kidney disease; I25.10 Atherosclerotic heart disease of native coronary artery without angina pectoris; D64.9 Anemia, unspecified; Z99.2 Dependence on renal dialysis; J44.9 Chronic obstructive pulmonary disease, unspecified; M79.605 Pain in left leg; Z88.5 Allergy status to narcotic agent; Z95.1 Presence of aortocoronary bypass graft
CPT/HCPCS: 36415; 71045; 80048; 82550; 82962; 84484; 85025; 93970; 99285; A4606; J0690; J1815; J2543; J3373

== ENCOUNTER 2025-01-11 02:47 | Emergency (ER) | payer OTHER ==
[~2025-01-11] VITALS: Ht 167.6 cm; Wt 90.0 kg
[~2025-01-11 02:47] MED LIST changes: -FERR-71 MT; -FOLI0.8T27 PO
[2025-01-11 02:58] VITALS: O2SAT 99
[2025-01-11 03:55] LABS: BASOPHILS % 0.9 % (0.0-2.0); EOSINOPHILS % 9.0 % (0.0-5.0); HEMATOCRIT. 33.1 % (36.0-48.0); HEMOGLOBIN. 10.6 g/dL (12.0-16.0); LYMPHOCYTES % 22.8 % (20.0-50.0); MEAN PLATELET VOLUME 8.0 fl (7.4-10.4); MONOCYTES % 6.8 % (2.0-8.0); NEUTROPHILS % 60.5 % (40.0-76.0); PLATELET 233 x1000/uL (130-400); RED BLOOD CELL COUNT 3.16 mill/uL (4.2-5.4); RED CELL DISTRIBUTION WIDTH 18.9 % (11.6-14.6)
[2025-01-11 04:09] LABS: INR 1.0
[2025-01-11 04:13] LABS: TROPONIN I HIGH SENSITIVITY 18 ng/L (3.0-34)
[2025-01-11] MEDS: ACETAMINOPHEN 325MG TABLET PO ONE (04:37)
[2025-01-11 06:18] LABS: UREA NITROGEN BLOOD 13 mg/dL (9-23)
[2025-01-11 06:19] LABS: TROPONIN I HIGH SENSITIVITY 19 ng/L (3.0-34)
[2025-01-11 06:20] LABS: ASPARTATE AMINOTRANSFERASE 24 IU/L (<34); BILIRUBIN DIRECT < 0.1 mg/dL (<=3.0); BILIRUBIN TOTAL < 0.2 mg/dL (0.1-1.0); PROTEIN TOTAL 7.4 g/dL (6.0-8.3)
[2025-01-11 06:27] LABS: CREATININE 5.4 mg/dL (0.6-1.0)
[2025-01-11 09:06] VITALS: BP 109/54; PULSE 82; RESP 11; TEMP 37.2; O2SAT 100
== END 2025-01-11 09:06 | disposition short-term general hospital (02) ==
LOC: ER 02:47 → EDBEDREQ 06:38 → EDBEDREQTM 06:38 → ER 09:06 → CMPBEDREQ 11:27
DX: R06.02 Shortness of breath (principal); I13.2 Hypertensive heart and chronic kidney disease with heart failure and with stage 5 chronic kidney disease, or end stage renal disease; E11.22 Type 2 diabetes mellitus with diabetic chronic kidney disease; N18.6 End stage renal disease; Z79.899 Other long term (current) drug therapy; Z79.01 Long term (current) use of anticoagulants; Z99.2 Dependence on renal dialysis; Z20.822 Contact with and (suspected) exposure to COVID-19; Z95.0 Presence of cardiac pacemaker; Z88.8 Allergy status to other drugs, medicaments and biological substances; Z88.6 Allergy status to analgesic agent; Z88.5 Allergy status to narcotic agent
CPT/HCPCS: 80076; 80048; 80320; 83880; 85025; 85610; 85730; 84484; 36415; 71045; 93005; 99285; 87426; Z7610 ×2; A4606; G0480

== ENCOUNTER 2025-01-27 12:47 | Inpatient (IN) | payer OTHER ==
[~2025-01-27] VITALS: Ht 170.2 cm; Wt 114.3 kg
[2025-01-27 12:54] VITALS: O2SAT 99
[2025-01-27 15:01] LABS: BASOPHILS % 0.7 % (0.0-2.0); EOSINOPHILS % 5.8 % (0.0-5.0); HEMATOCRIT. 31.9 % (36.0-48.0); HEMOGLOBIN. 10.0 g/dL (12.0-16.0); LYMPHOCYTES % 19.6 % (20.0-50.0); MEAN PLATELET VOLUME 8.5 fl (7.4-10.4); MONOCYTES % 7.1 % (2.0-8.0); NEUTROPHILS % 66.8 % (40.0-76.0); PLATELET 132 x1000/uL (130-400); RED BLOOD CELL COUNT 2.96 mill/uL (4.2-5.4); RED CELL DISTRIBUTION WIDTH 19.2 % (11.6-14.6)
[2025-01-27 15:14] LABS: UREA NITROGEN BLOOD 10 mg/dL (9-23)
[2025-01-27 15:15] LABS: PROTEIN TOTAL 7.3 g/dL (6.0-8.3); TROPONIN I HIGH SENSITIVITY 34 ng/L (3.0-34)
[2025-01-27 15:16] LABS: ASPARTATE AMINOTRANSFERASE 27 IU/L (<34); BILIRUBIN DIRECT < 0.1 mg/dL (<=3.0); CREATININE 3.4 mg/dL (0.6-1.0)
[2025-01-27 15:17] LABS: BILIRUBIN TOTAL < 0.2 mg/dL (0.1-1.0)
[2025-01-27] MEDS: NITROGLYCERIN 0.4MG TABLET SL SL ONE (16:29)
[2025-01-27] MEDS ORDERED: CLONIDINE 0.1MG TABLET PO PRN (18:00)
[2025-01-27] MEDS ORDERED: GUAIFENESIN 200MG/10ML SUGAR FREE UDC PO PRN (18:00)
[2025-01-27] MEDS ORDERED: IPRATROPIUM/ALBUTEROL 0.5-3(2.5)MG/3ML NEB HHN PRN (18:00)
[2025-01-27] MEDS ORDERED: ONDANSETRON HCL 4MG/2ML INJ IV PRN (18:00)
[2025-01-27] MEDS ORDERED: DOCUSATE SODIUM 100MG CAPSULE PO PRN (18:00)
[2025-01-27] MEDS ORDERED: ACETAMINOPHEN 325MG TABLET PO PRN (18:00)
[2025-01-27] MEDS ORDERED: MAGNESIUM/ALUMINUM HYDROXIDE/SIMETHICONE 30ML UDC PO PRN (18:00)
[2025-01-27] MEDS ORDERED: DEXTROSE 50% WATER 50ML SYRINGE IV PRN (18:15)
[2025-01-27] MEDS ORDERED: FUROSEMIDE 20MG/2ML VIAL IVP PRN (18:45)
[2025-01-27] MEDS: NITROGLYCERIN 0.4MG TABLET SL SL PRN (18:59)
[2025-01-27 19:13] LABS: TROPONIN I HIGH SENSITIVITY 36 ng/L (3.0-34)
[2025-01-27 21:00] LABS: HEPATITIS A AB IGM NEGATIVE (Negative)
[2025-01-27] MEDS: LATANOPROST 0.005% OPHTH DROPS 2.5ML EACHEYE SCH (21:00)
[2025-01-27] MEDS: ATORVASTATIN CALCIUM 40MG TABLET PO SCH (21:00)
[2025-01-27] MEDS: BLOOD SUGAR DIAGNOSTIC STRIP TEST SCH (21:00)
[2025-01-27] MEDS: APIXABAN 2.5 MG TABLET PO SCH (21:00)
[2025-01-27 21:01] LABS: HEPATITIS B CORE AB IGM NEGATIVE (Negative); HEPATITIS C AB NON REACTIVE (Neg) (Negative)
[2025-01-27] MEDS: ACETAMINOPHEN 325MG TABLET PO PRN (21:24)
[2025-01-27] MEDS: IOHEXOL-350 100 ML BOTTLE ONE (21:55)
[2025-01-28] VITALS (11 sets, daily range): BP systolic 81–148; BP diastolic 46–81; PULSE 65–100; RESP 18–20; TEMP 36.6–36.7; O2SAT 97–100
[2025-01-28] MEDS: GABAPENTIN 100MG CAPSULE PO NR
[2025-01-28] MEDS: INSULIN LISPRO 100 UNITS/ML SUBCUT SCH ×2 (07:40→12:48)
[2025-01-28] MEDS ORDERED: DEXTROSE 50% WATER 50ML SYRINGE IV PRN (07:45)
[2025-01-28] MEDS ORDERED: METOPROLOL TARTRATE 5MG/5ML VIAL IV PRN (07:45)
[2025-01-28] MEDS: INSULIN GLARGINE 100 UNITS/ML SUBCUT NR (07:45)
[2025-01-28] MEDS: TRIAMCINOLONE ACETONIDE 0.5% CREAM 15GM TOP SCH (09:00)
[2025-01-28] MEDS ORDERED: DOCUSATE SODIUM 100MG CAPSULE PO PRN (09:30)
[2025-01-28] MEDS ORDERED: ISOSORBIDE MONONITRATE 30MG TABLET SR 24HR PO SCH (10:00)
[2025-01-28] MEDS: ASPIRIN 81MG EC TABLET PO SCH (10:23)
[2025-01-28] MEDS: PANTOPRAZOLE SODIUM 40 MG/VIAL IV SCH (10:23)
[2025-01-28] MEDS: GABAPENTIN 300MG CAPSULE PO NR (10:37)
[2025-01-28] MEDS: ATORVASTATIN CALCIUM 40MG TABLET PO SCH (10:37)
[2025-01-28] MEDS ORDERED: ERGOCALCIFEROL 50000UNITS CAPSULE PO SCH (11:00)
[2025-01-28] MEDS ORDERED: BLOOD SUGAR DIAGNOSTIC STRIP TEST SCH (12:10)
[2025-01-28] MEDS: ISOSORBIDE MONONITRATE 60MG TABLET SR 24HR PO SCH (13:56)
[2025-01-28 16:10] LABS: BASOPHILS % 0.6 % (0.0-2.0); EOSINOPHILS % 5.5 % (0.0-5.0); HEMATOCRIT. 32.3 % (36.0-48.0); HEMOGLOBIN. 10.1 g/dL (12.0-16.0); LYMPHOCYTES % 16.3 % (20.0-50.0); MEAN PLATELET VOLUME 8.3 fl (7.4-10.4); MONOCYTES % 5.4 % (2.0-8.0); NEUTROPHILS % 72.2 % (40.0-76.0); PLATELET 123 x1000/uL (130-400); RED BLOOD CELL COUNT 3.04 mill/uL (4.2-5.4); RED CELL DISTRIBUTION WIDTH 19.5 % (11.6-14.6)
[2025-01-28 16:21] LABS: CREATINE KINASE MB FRACTION 6.5 ng/mL (0.5-3.6)
[2025-01-28 16:22] LABS: CREATININE 3.4 mg/dL (0.6-1.0); TRIGLYCERIDE 146.0 mg/dL (0-150); UREA NITROGEN BLOOD 11.0 mg/dL (9-23)
[2025-01-28 16:23] LABS: LDL CHOLESTEROL 39.0 mg/dL (5-100)
[2025-01-28 16:25] LABS: T4 FREE 1.01 ng/dL (0.89-1.76)
[2025-01-28 16:33] LABS: TROPONIN I HIGH SENSITIVITY 41 ng/L (3.0-34)
[2025-01-28] MEDS: APIXABAN 2.5 MG TABLET PO SCH (18:15)
[2025-01-28] MEDS ORDERED: LATANOPROST 0.005% OPHTH DROPS 2.5ML EACHEYE SCH (21:00)
[2025-01-28] MEDS ORDERED: APIXABAN 5 MG TABLET PO SCH (21:00)
[2025-01-28 22:35] LABS: TROPONIN I HIGH SENSITIVITY 28 ng/L (3.0-34)
[2025-01-28] MEDS: MAGNESIUM 2 G PREMIX 50 ML IV NR (23:18)
[2025-01-29] VITALS: BP 103/44; PULSE 97; RESP 16; TEMP 36.4; O2SAT 98
[2025-01-29 00:02] VITALS: RESP 22
[2025-01-29 03:21] LABS: TROPONIN I HIGH SENSITIVITY 35 ng/L (3.0-34)
[2025-01-29 04:00] VITALS: BP 137/67; PULSE 94; RESP 18; TEMP 36.7; O2SAT 98
[2025-01-29 07:17] LABS: TROPONIN I HIGH SENSITIVITY 30 ng/L (3.0-34)
[2025-01-29 07:25] LABS: UREA NITROGEN BLOOD 14 mg/dL (9-23)
[2025-01-29 07:27] LABS: PHOSPHORUS 3.0 mg/dL (2.5-4.9)
[2025-01-29 08:19] LABS: CREATININE 4.8 mg/dL (0.6-1.0)
[2025-01-29 09:50] LABS: BASOPHILS % 0.6 % (0.0-2.0); EOSINOPHILS % 5.9 % (0.0-5.0); HEMATOCRIT. 38.7 % (36.0-48.0); HEMOGLOBIN. 11.7 g/dL (12.0-16.0); LYMPHOCYTES % 15.7 % (20.0-50.0); MEAN PLATELET VOLUME 8.9 fl (7.4-10.4); MONOCYTES % 5.8 % (2.0-8.0); NEUTROPHILS % 72.0 % (40.0-76.0); PLATELET 102 x1000/uL (130-400); RED BLOOD CELL COUNT 3.49 mill/uL (4.2-5.4); RED CELL DISTRIBUTION WIDTH 20.3 % (11.6-14.6)
[2025-01-29 09:56] LABS: ADD RBC MORPHOLOGY YES
[2025-01-29 12:00] VITALS: BP 146/83; PULSE 85; RESP 18; TEMP 36.5; O2SAT 100
[2025-01-29 14:23] LABS: PLATELET ESTIMATE SLIGHTLY DECREASED
[2025-01-29 16:57] VITALS: BP 125/74; PULSE 89; RESP 16; TEMP 97.8
== END 2025-01-29 17:57 | disposition short-term general hospital (02) | DRG 311 ==
LOC: ER 12:47 → 8WST 17:06 → EDBEDREQ 17:08 → EDBEDREQTM 17:08
PROVIDERS: ADMIT Internal Medicine; ATTEND Internal Medicine
PROC: 5A1D70Z Performance of Urinary Filtration, Intermittent, Less than 6 Hours Per Day (ICD-10-PCS; principal; 2025-01-27)
PROC: 5A09357 Assistance with Respiratory Ventilation, Less than 24 Consecutive Hours, Continuous Positive Airway Pressure (ICD-10-PCS; 2025-01-29)
DX: I24.9 Acute ischemic heart disease, unspecified (principal); N18.6 End stage renal disease; I13.2 Hypertensive heart and chronic kidney disease with heart failure and with stage 5 chronic kidney disease, or end stage renal disease; Z99.81 Dependence on supplemental oxygen; Z99.2 Dependence on renal dialysis; Z79.01 Long term (current) use of anticoagulants; E66.813 Obesity, class 3; D64.9 Anemia, unspecified; E11.22 Type 2 diabetes mellitus with diabetic chronic kidney disease; J44.9 Chronic obstructive pulmonary disease, unspecified; I50.32 Chronic diastolic (congestive) heart failure; E78.5 Hyperlipidemia, unspecified; G47.33 Obstructive sleep apnea (adult) (pediatric); H40.9 Unspecified glaucoma; G89.29 Other chronic pain; I48.0 Paroxysmal atrial fibrillation; I25.10 Atherosclerotic heart disease of native coronary artery without angina pectoris; I25.2 Old myocardial infarction; Z74.01 Bed confinement status; Z79.4 Long term (current) use of insulin; Z87.891 Personal history of nicotine dependence; Z88.5 Allergy status to narcotic agent; Z95.0 Presence of cardiac pacemaker; Z95.1 Presence of aortocoronary bypass graft; Z98.61 Coronary angioplasty status; Z68.39 Body mass index [BMI] 39.0-39.9, adult
CPT/HCPCS: 36415; 71045; 71275; 80048; 80061; 80076; 82550; 82553; 82962; 83036; 83735; 83880; 84100; 84439; 84443; 84484; 85025; 85379; 86705; 86709; 87340; 90935; 93005; 93306; 94070; 94664; 98960; 99285; A4615; A6449; J1815; J2470; J3475; Q9967

== ENCOUNTER 2025-02-02 12:48 | Inpatient (IN) | payer OTHER ==
[~2025-02-02] VITALS: Ht 167.6 cm; Wt 111.6 kg
[2025-02-02 12:52] VITALS: O2SAT 99
[2025-02-02] MEDS: MAGNESIUM 2 G PREMIX 50 ML IV ONE (14:46)
[2025-02-02 14:59] LABS: BASOPHILS % 0.4 % (0.0-2.0); EOSINOPHILS % 0.1 % (0.0-5.0); HEMATOCRIT. 33.6 % (36.0-48.0); HEMOGLOBIN. 10.7 g/dL (12.0-16.0); LYMPHOCYTES % 9.4 % (20.0-50.0); MEAN PLATELET VOLUME 9.1 fl (7.4-10.4); MONOCYTES % 6.9 % (2.0-8.0); NEUTROPHILS % 83.2 % (40.0-76.0); PLATELET 190 x1000/uL (130-400); RED BLOOD CELL COUNT 3.22 mill/uL (4.2-5.4); RED CELL DISTRIBUTION WIDTH 18.5 % (11.6-14.6)
[2025-02-02 15:07] LABS: UREA NITROGEN BLOOD 34 mg/dL (9-23)
[2025-02-02 15:08] LABS: PROTEIN TOTAL 7.8 g/dL (6.0-8.3)
[2025-02-02 15:09] LABS: ASPARTATE AMINOTRANSFERASE 31 IU/L (<34); BILIRUBIN DIRECT < 0.1 mg/dL (<=3.0); BILIRUBIN TOTAL 0.2 mg/dL (0.1-1.0)
[2025-02-02 15:38] LABS: CREATININE 7.4 mg/dL (0.6-1.0); TROPONIN I HIGH SENSITIVITY 44 ng/L (3.0-34)
[2025-02-02] MEDS: DEXTROSE 50% WATER 50ML SYRINGE IV ONE ×2 (16:05→16:10)
[2025-02-02] MEDS: INSULIN REGULAR (HUMULIN R) 1000UNITS/10ML VIAL IV ONE (16:06)
[2025-02-02] MEDS: SODIUM ZIRCONIUM CYCLOSILICATE 10GM/PACKET PO ONE (16:07)
[2025-02-02] MEDS: SODIUM CHLORIDE 0.9% 500 ML IV ONE (16:14)
[2025-02-02] MEDS: CALCIUM GLUCONATE 100MG/ML 10ML VIAL IV ONE (16:37)
[2025-02-02] MEDS: ADENOSINE 3 MG/ML 2ML VIAL IV ONE (17:35)
[2025-02-02] MEDS: MORPHINE SULFATE 4 MG/ML INJ (FOR IV/IM USE) IV ONE (17:48)
[2025-02-02] MEDS ORDERED: MAGNESIUM/ALUMINUM HYDROXIDE/SIMETHICONE 30ML UDC PO PRN (18:45)
[2025-02-02] MEDS ORDERED: CLONIDINE 0.1MG TABLET PO PRN (18:45)
[2025-02-02] MEDS ORDERED: IPRATROPIUM/ALBUTEROL 0.5-3(2.5)MG/3ML NEB HHN PRN (18:45)
[2025-02-02] MEDS ORDERED: GUAIFENESIN 200MG/10ML SUGAR FREE UDC PO PRN (18:45)
[2025-02-02] MEDS ORDERED: DOCUSATE SODIUM 100MG CAPSULE PO PRN (18:45)
[2025-02-02] MEDS ORDERED: ONDANSETRON HCL 4MG/2ML INJ IV PRN (18:45)
[2025-02-02] MEDS ORDERED: ACETAMINOPHEN 325MG TABLET PO PRN (18:45)
[2025-02-02] MEDS ORDERED: DEXTROSE 50% WATER 50ML SYRINGE IV PRN (19:00)
[2025-02-02] MEDS ORDERED: GABAPENTIN 300MG CAPSULE PO NR (19:00)
[2025-02-02] MEDS ORDERED: METOPROLOL TARTRATE 50MG TABLET PO NR (19:26)
[2025-02-02] MEDS: BLOOD SUGAR DIAGNOSTIC STRIP TEST SCH (21:00)
[2025-02-02] MEDS: INSULIN LISPRO 100 UNITS/ML SUBCUT SCH (21:00)
[2025-02-02] MEDS: ATORVASTATIN CALCIUM 40MG TABLET PO SCH (21:00)
[2025-02-02] MEDS: APIXABAN 2.5 MG TABLET PO SCH (21:00)
[2025-02-02] MEDS: LATANOPROST 0.005% OPHTH DROPS 2.5ML EACHEYE SCH (21:00)
[2025-02-03] VITALS (17 sets, daily range): BP systolic 87–133; BP diastolic 53–83; PULSE 96–136; RESP 17–28; TEMP 36.114–37.6; O2SAT 89–100
[2025-02-03 00:49] LABS: TROPONIN I HIGH SENSITIVITY 43 ng/L (3.0-34)
[2025-02-03] MEDS ORDERED: AMIODARONE HCL 900 MG in DEXT 5% WATER 500 ML IV SCH (08:00)
[2025-02-03] MEDS: INS NPH/REG HM 70-30 10ML VIAL (HUMULIN 70-30) SUBCUT SCH (08:15)
[2025-02-03] MEDS ORDERED: NITROGLYCERIN 0.4MG TABLET SL SL PRN (08:45)
[2025-02-03] MEDS: ASPIRIN 81MG EC TABLET PO SCH (08:56)
[2025-02-03] MEDS: HYDROCODONE/ACETAMINOPHEN 5/325MG TABLET PO PRN (08:56)
[2025-02-03] MEDS: PANTOPRAZOLE SODIUM 40 MG/VIAL IV SCH (08:56)
[2025-02-03] MEDS ORDERED: NALOXONE HCL 0.4MG/ML VIAL IV PRN (09:00)
[2025-02-03] MEDS ORDERED: DOXY-162 MT (10:17)
[2025-02-03] MEDS: DOXYCYCLINE 100MG/100ML 100 ML IV SCH (17:02)
[2025-02-03] MEDS: ISOSORBIDE MONONITRATE 60MG TABLET SR 24HR PO SCH (17:27)
[2025-02-03] MEDS: ACETAMINOPHEN 325MG TABLET PO PRN (19:46)
[2025-02-03 21:11] LABS: HEMATOCRIT. 26.1 % (36.0-48.0); HEMOGLOBIN. 8.2 g/dL (12.0-16.0); MEAN PLATELET VOLUME 9.3 fl (7.4-10.4); PLATELET 167 x1000/uL (130-400); RED BLOOD CELL COUNT 2.48 mill/uL (4.2-5.4); RED CELL DISTRIBUTION WIDTH 18.7 % (11.6-14.6)
[2025-02-03] MEDS: APIXABAN 5 MG TABLET PO SCH (21:25)
[2025-02-03] MEDS ORDERED: GABA-529 PO (21:27)
[2025-02-03 21:29] LABS: BAND% 3.0 % (1.0-6.0); LYMPHOCYTES % MANUAL 4.0 % (20.0-60.0); MONOCYTES % MANUAL 10.0 % (2.0-8.0); NEUTROPHILS % MANUAL 83.0 % (45.0-75.0); PLATELET ESTIMATE NORMAL
[2025-02-03 21:32] LABS: TRIGLYCERIDE 164.0 mg/dL (0-150); UREA NITROGEN BLOOD 28.0 mg/dL (9-23)
[2025-02-03 21:33] LABS: LDL CHOLESTEROL 25.0 mg/dL (5-100)
[2025-02-03 21:34] LABS: CREATINE KINASE MB FRACTION 2.6 ng/mL (0.5-3.6); PHOSPHORUS 4.6 mg/dL (2.5-4.9)
[2025-02-03 21:43] LABS: TROPONIN I HIGH SENSITIVITY 131 ng/L (3.0-34)
[2025-02-03 21:45] LABS: CREATININE 6.4 mg/dL (0.6-1.0)
[2025-02-03 22:09] LABS: HEPATITIS A AB IGM NEGATIVE (Negative)
[2025-02-03 22:10] LABS: HEPATITIS B CORE AB IGM NEGATIVE (Negative); HEPATITIS C AB NON REACTIVE (Neg) (Negative)
[2025-02-03] MEDS: GABAPENTIN 100MG CAPSULE PO SCH (22:49)
[2025-02-04] VITALS (26 sets, daily range): BP systolic 59–120; BP diastolic 45–77; PULSE 89–120; RESP 14–36; TEMP 36.22512–37.7; O2SAT 90–100
[2025-02-04] MEDS: TRIAMCINOLONE ACETONIDE 0.025% OINT 15GM TOP SCH (06:19)
[2025-02-04] MEDS: PIPERACILLIN/TAZO 3.375G/50ML 50 ML IV SCH (08:53)
[2025-02-04] MEDS: VANCOMYCIN 2GM PMX (XELLIA) 400 ML IV SCH (10:27)
[2025-02-04 11:11] LABS: HEMATOCRIT. 29.0 % (36.0-48.0); HEMOGLOBIN. 9.1 g/dL (12.0-16.0); MEAN PLATELET VOLUME 9.4 fl (7.4-10.4); PLATELET 196 x1000/uL (130-400); RED BLOOD CELL COUNT 2.79 mill/uL (4.2-5.4); RED CELL DISTRIBUTION WIDTH 18.6 % (11.6-14.6)
[2025-02-04 11:32] LABS: UREA NITROGEN BLOOD 34 mg/dL (9-23)
[2025-02-04 11:34] LABS: PHOSPHORUS 4.7 mg/dL (2.5-4.9)
[2025-02-04 11:35] LABS: CREATININE 7.1 mg/dL (0.6-1.0)
[2025-02-04] MEDS: SODIUM CHLORIDE 0.9% 500 ML IV ONE (12:32)
[2025-02-04] MEDS ORDERED: GABAPENTIN 100MG CAPSULE PO SCH (22:30)
[2025-02-05 16:05] LABS: LYMPHOCYTES % MANUAL 4.0 % (20.0-60.0); MONOCYTES % MANUAL 5.0 % (2.0-8.0); NEUTROPHILS % MANUAL 91.0 % (45.0-75.0); PLATELET ESTIMATE NORMAL
== END 2025-02-04 18:35 | disposition short-term general hospital (02) | DRG 871 ==
LOC: ER 12:48 → 8EST 16:02 → EDBEDREQ 16:05 → EDBEDREQTM 16:05 → 5WST 02-03 02:47 → 5EST 02-03 12:16
PROVIDERS: ADMIT Hospitalist; ATTEND Hospitalist
PROC: 5A1D70Z Performance of Urinary Filtration, Intermittent, Less than 6 Hours Per Day (ICD-10-PCS; principal; 2025-02-03)
PROC: 5A1D70Z Performance of Urinary Filtration, Intermittent, Less than 6 Hours Per Day (ICD-10-PCS; 2025-02-04)
DX: A41.9 Sepsis, unspecified organism (principal); L89.313 Pressure ulcer of right buttock, stage 3; N18.6 End stage renal disease; I13.2 Hypertensive heart and chronic kidney disease with heart failure and with stage 5 chronic kidney disease, or end stage renal disease; I47.10 Supraventricular tachycardia, unspecified; I50.32 Chronic diastolic (congestive) heart failure; I49.5 Sick sinus syndrome; D63.1 Anemia in chronic kidney disease; Z99.81 Dependence on supplemental oxygen; L03.113 Cellulitis of right upper limb; Z99.2 Dependence on renal dialysis; Z79.01 Long term (current) use of anticoagulants; E11.22 Type 2 diabetes mellitus with diabetic chronic kidney disease; E66.813 Obesity, class 3; J44.9 Chronic obstructive pulmonary disease, unspecified; E87.5 Hyperkalemia; I48.0 Paroxysmal atrial fibrillation; H40.9 Unspecified glaucoma; G47.33 Obstructive sleep apnea (adult) (pediatric); D53.9 Nutritional anemia, unspecified; L90.5 Scar conditions and fibrosis of skin; I25.10 Atherosclerotic heart disease of native coronary artery without angina pectoris; Z95.1 Presence of aortocoronary bypass graft; Z74.01 Bed confinement status; Z79.4 Long term (current) use of insulin; Z95.0 Presence of cardiac pacemaker; Z88.5 Allergy status to narcotic agent; Z88.8 Allergy status to other drugs, medicaments and biological substances; Z95.5 Presence of coronary angioplasty implant and graft; Z68.39 Body mass index [BMI] 39.0-39.9, adult
CPT/HCPCS: 36415; 71045; 80048; 80061; 80076; 82553; 82962; 83605; 83735; 83880; 84100; 84145; 84443; 84484; 85025; 85379; 86705; 86709; 87340; 90935; 93005; J0153; J0282; J0612; J1815; J2270; J2470; J2543; J3373; J3475; J3490; J7040; J7060

== ENCOUNTER 2025-02-12 02:40 | Emergency (ER) | payer OTHER ==
[~2025-02-12] VITALS: Ht 165.1 cm; Wt 91.0 kg
[~2025-02-12 02:40] MED LIST changes: +DOXY-162 MT; +GABA-529 PO
[2025-02-12 02:43] VITALS: O2SAT 100
[2025-02-12 03:34] VITALS: BP 118/41; PULSE 79; RESP 21; TEMP 37.1; O2SAT 99
== END 2025-02-12 05:30 | disposition left against medical advice (07) ==
LOC: ER 02:40 → CMPBEDREQ 08:31
DX: R06.02 Shortness of breath (principal); I12.0 Hypertensive chronic kidney disease with stage 5 chronic kidney disease or end stage renal disease; E11.22 Type 2 diabetes mellitus with diabetic chronic kidney disease; N18.6 End stage renal disease; Z79.899 Other long term (current) drug therapy; Z99.2 Dependence on renal dialysis; Z88.5 Allergy status to narcotic agent; Z88.6 Allergy status to analgesic agent; Z88.8 Allergy status to other drugs, medicaments and biological substances
CPT/HCPCS: 99283